=== PATIENT | female | born 1930 | race Caucasian/White ===

== ENCOUNTER 2018-09-08 21:33 | Observation (INO) ==
--- NOTE | 2018-09-08 22:21 | XRay Report ---
XR chest 1V portable CLINICAL HISTORY: Syncope. COMPARISON STUDY: No previous studies for comparison. FINDINGS: Scoliosis of the thoracolumbar spine is noted. There is moderate cardiomegaly without evide nce for pulmonary edema. There is no consolidation to suggest pneumonia. Lower mediastinal contour ab normality may reflect a hiatal hernia. IMPRESSION: 1. No acute cardiopulmonary findings. 2. Moderate cardiomegaly. 3. Suspected hiatal hernia. Electronically signed by: Jay Jay Jose M.D. 09/08/2018 10:19 PM
--- NOTE | 2018-09-08 22:28 | CT Scan Report ---
CT OF THE HEAD WITHOUT CONTRAST CLINICAL HISTORY: Syncope. COMPARISON STUDY: No previous studies for comparison. TECHNIQUE: Helical axial images of the head were obtained without IV contrast. Automated exposure con trol was utilized for the study. A dose lowering technique was utilized adhering to the principles o f ALARA. FINDINGS: Exam is mildly compromised given difficulty with positioning. However, no acute intracrania l hemorrhage, midline shift or mass effect is present. Ventricular system is normal for age. Basilar cisterns are patent. There are no extra-axial collections. Bilateral basal ganglia calcification is n oted. There is a posterior scalp contusion and laceration without calvarial fracture. The CT of the c ervical spine will be reported separately. IMPRESSION: 1. No acute intracranial findings. 2. Posterior scalp contusion and laceration. No calvarial fracture. Electronically signed by: Jay Jay Jose M.D. 09/08/2018 10:27 PM
[2018-09-08] MEDS ORDERED: LIDOCAINE HCL 1% 20 ML VIAL ONE (22:34)
--- NOTE | 2018-09-08 22:34 | CT Scan Report ---
CT OF THE CERVICAL SPINE WITHOUT CONTRAST CLINICAL HISTORY: Syncope. COMPARISON STUDY: No previous studies for comparison. TECHNIQUE: Helical axial images of the cervical spine were obtained without IV contrast. Sagittal a nd coronal reconstructions were viewed. Automated exposure control was utilized for the study. A do se lowering technique was utilized adhering to the principles of ALARA. FINDINGS: Exam is mildly compromised given difficulty with positioning. However, craniocervical junct ion is intact. No acute fracture is identified. Severe multilevel facet arthrosis is present. There i s moderate multilevel degenerative disc disease. There is no prevertebral edema. There is no pneumoth orax within visualized portions of the lung apices. IMPRESSION: 1. No acute cervical spine fracture or subluxation. Exam mildly compromised given difficulty position ing. 2. Severe multilevel facet arthrosis. Moderate multilevel degenerative disc disease. Electronically signed by: Jay Jay Jose M.D. 09/08/2018 10:33 PM
--- NOTE | 2018-09-08 22:46 | Emergency Department Note ---
Entered by Sarah Mitchell acting as a scribe for Morris Banda DO History of Present Illness General Chief complaint: Fall Stated complaint: FALL, STRUCK HEAD Source: patient and RN notes reviewed Limitations: no limitations History of Present Illness Provider complaint: fall Onset (ago): hour(s) Location: head Associated symptoms: + denies other symptoms (stomach pain, back pain) and + syncope The patient is a 88 year old female who presents to the Emergency Room with complaints of falling just prior to arrival. Per nurse, the patient was saturated in blood upon arrival. The patient states that she was in her bedroom and states that she fell over her night stand. The patient states that she lost consciousness. The patient denies any stomach pain or back pain. The patient states that she has a history of arthritis. The patient denies being on blood thinner medication. The patient states that her Tetanus shot is up-to-date. Home Medications Home Medications Medication Instructions Recorded Confirmed Type Calcium 500 + D 2 tab PO DAILY 09/08/18 09/08/18 History acetaminophen [Tylenol Extra 500 mg PO Q6H PRN 09/08/18 09/08/18 History Strength] cholecalciferol (vitamin D3) 2,000 unit PO DAILY 09/08/18 09/08/18 History docusate sodium [Stool Softener] 100 mg PO DAILY PRN 09/08/18 09/08/18 History hydrocodone-acetaminophen 1 tab PO Q4H PRN 09/08/18 09/08/18 History lorazepam 0.5 mg PO DAILY PRN 09/08/18 09/08/18 History metoprolol succinate 50 mg PO DAILY 09/08/18 09/08/18 History omega [id number] oil [[place]-3 2 cap PO DAILY 09/08/18 09/08/18 History Fish Oil] simvastatin 10 mg PO DAILY 09/08/18 09/08/18 History Allergies Allergy/AdvReac Type Severity Reaction Status Date / Time No Known Allergies Allergy Unverified 09/08/18 22:44 Past Med/Surg History Medical History Arthritis (Chronic) Surgical History No history of previous surgery (Inactive) Family History Other HTN (hypertension) Social History Current Living Situation: Personal Care Facility Other Information That Helps Us Care for You: No Feels Safe at Home: Yes Smoking Status: Never smoker Hx Alcohol Use: No Beliefs That Will Affect Care: None Communication Ability: Effective Review of Systems See HPI for pertinent positives & negatives. and A total of 10 systems reviewed and were otherwise negative Physical Exam Vital Signs Vital Signs - 24 hr 09/08/18 21:23 09/08/18 21:58 09/08/18 22:49 Temperature 36.5 C Temperature Source Oral Sepsis Recent Fever Within 48 Hours No Sepsis New/Unexplained Change in Mental Status No Sepsis Action Taken by Nursing No Action Required Pulse Rate - Lying Pulse Rate - Sitting Pulse Rate - Standing Pulse Rate 88 Pulse Rate [Apical] 63 Pulse Rhythm [Apical] Pulse Strength [Apical] Respiratory Rate 18 18 Respiratory Effort / Characteristics Non-Labored Non-Labored Respiratory Depth Normal Normal Respiratory Pattern Blood Pressure - Lying Blood Pressure - Sitting Blood Pressure- Standing Blood Pressure 167/98 H Blood Pressure [Left Arm] 184/107 H Blood Pressure [Right Arm] Blood Pressure Mean 121 Blood Pressure Mean [Left Arm] 132 Blood Pressure Mean [Right Arm] Blood Pressure Position [Left Arm] Blood Pressure Position [Right Arm] Pulse Oximetry 97 97 96 Oxygen Delivery Method Room Air Room Air Room Air 09/09/18 00:10 09/09/18 01:05 09/09/18 01:22 Temperature 36.7 C Temperature Source Oral Sepsis Recent Fever Within 48 Hours Sepsis New/Unexplained Change in Mental Status Sepsis Action Taken by Nursing Pulse Rate - Lying Pulse Rate - Sitting Pulse Rate - Standing Pulse Rate 62 Pulse Rate [Apical] 68 70 Pulse Rhythm [Apical] Regular Pulse Strength [Apical] Normal Respiratory Rate 18 16 16 Respiratory Effort / Characteristics Respiratory Depth Normal Normal Respiratory Pattern Blood Pressure - Lying Blood Pressure - Sitting Blood Pressure- Standing Blood Pressure 132/83 Blood Pressure [Left Arm] 165/93 H 158/81 H Blood Pressure [Right Arm] Blood Pressure Mean Blood Pressure Mean [Left Arm] 117 106 Blood Pressure Mean [Right Arm] Blood Pressure Position [Left Arm] Lying Blood Pressure Position [Right Arm] Pulse Oximetry 97 97 97 Oxygen Delivery Method Room Air Room Air Room Air 09/09/18 04:00 09/09/18 07:34 09/09/18 08:00 Temperature 36.6 C 36.5 C Temperature Source Oral Oral Sepsis Recent Fever Within 48 Hours Sepsis New/Unexplained Change in Mental Status Sepsis Action Taken by Nursing Pulse Rate - Lying Pulse Rate - Sitting Pulse Rate - Standing Pulse Rate 63 Pulse Rate [Apical] 59 L 62 Pulse Rhythm [Apical] Pulse Strength [Apical] Respiratory Rate 20 62 H Respiratory Effort / Characteristics Non-Labored Spontaneous Respiratory Depth Normal Normal Respiratory Pattern Regular Blood Pressure - Lying Blood Pressure - Sitting Blood Pressure- Standing Blood Pressure Blood Pressure [Left Arm] 131/83 156/90 H Blood Pressure [Right Arm] Blood Pressure Mean Blood Pressure Mean [Left Arm] 99 112 Blood Pressure Mean [Right Arm] Blood Pressure Position [Left Arm] Lying Lying Blood Pressure Position [Right Arm] Pulse Oximetry 96 97 Oxygen Delivery Method Room Air Room Air Room Air 09/09/18 11:37 09/09/18 11:38 09/09/18 14:59 Temperature 36.3 C L Temperature Source Oral Sepsis Recent Fever Within 48 Hours Sepsis New/Unexplained Change in Mental Status Sepsis Action Taken by Nursing Pulse Rate - Lying 51 L Pulse Rate - Sitting 84 Pulse Rate - Standing 76 Pulse Rate Pulse Rate [Apical] 51 L 62 Pulse Rhythm [Apical] Pulse Strength [Apical] Respiratory Rate 18 20 Respiratory Effort / Characteristics Respiratory Depth Respiratory Pattern Blood Pressure - Lying 119/72 Blood Pressure - Sitting 112/73 Blood Pressure- Standing 122/78 Blood Pressure Blood Pressure [Left Arm] Blood Pressure [Right Arm] 119/72 146/84 H Blood Pressure Mean Blood Pressure Mean [Left Arm] Blood Pressure Mean [Right Arm] 87 104 Blood Pressure Position [Left Arm] Blood Pressure Position [Right Arm] Lying Right Lateral Pulse Oximetry 95 97 Oxygen Delivery Method Room Air Room Air GENERAL: Patient is awake and alert. She is very anxious appearing and appears to be uncomfortable EYES: The conjunctivae are clear. The pupils are round and reactive. EARS, NOSE, MOUTH AND THROAT: The nose is without any evidence of any deformity. Mucous membranes are moist tongue is midline NECK: The neck is nontender and supple. RESPIRATORY: Normal respiratory effort is noted there is no evidence of wheezing rhonchi or rales CARDIOVASCULAR: Regular rate and rhythm noted there no murmurs rubs or gallops normal S1 normal S2 GASTROINTESTINAL: The abdomen is soft. Bowel sounds are present in all quadrants. Abdomen is nontender. BACK: Significant kyphoscoliosis was appreciated. No tenderness was noted. MUSCULOSKELETAL/EXTREMITIES: There is no evidence of gross deformity full range of motion is noted in the hips and shoulders SKIN: There is no obvious evidence of any rash. Trace pedal edema was noted bilaterally. There is a occipital scalp laceration noted. It is approximately 1.5 cm. No active bleeding was noted. NEUROLOGIC: Patient is awake alert and oriented x3 strength was symmetric but diminished bilaterally. There is no facial droop or drift appreciated. Procedures Laceration Laceration 1: Site: scalp Size (cm): 1.5 Description: linear Depth: simple, single layer Local Anesthetic: lidocaine 1% Amount of anesthesia used (mL): 4 Skin layer closed with: nylon Size (cm): 4-0 Number of sutures: 3 Technique: simple, interrupted Course 2154: Past medical records reviewed. The patient was evaluated in room B12, and a complete history and physical examination were performed. 2244: I checked on the patient and updated her on her results. 2333: I discussed the patient's case with Dr. Benjamin Chand Hospitalist who will evaluate the patient for further hospitalization. Consultations Consultation #1: Dr. Benjamin Omalley Time: 23:33 Administered Medications Acetaminophen (Tylenol) 650 mg PO Q4H PRN PRN Reason: Pain or Fever Stop: 10/09/18 01:51 Last Admin: 09/09/18 08:08 Dose: 650 mg Sodium Chloride (Nss 1000ml) 1,000 mls @ 50 mls/hr IV .Q20H STA Stop: 09/09/18 21:51 Last Admin: 09/09/18 03:02 Dose: 50 mls/hr Metoprolol Succinate (Toprol Xl) 50 mg PO HS HERMANN Stop: 10/09/18 00:04 Last Admin: 09/09/18 00:26 Dose: 50 mg Simvastatin (Zocor) 10 mg PO DAILY HERMANN Stop: 10/09/18 08:59 Last Admin: 09/09/18 08:07 Dose: 10 mg Discontinued Medications Acetaminophen (Tylenol) 500 mg PO NOW STA Stop: 09/08/18 22:52 Last Admin: 09/08/18 23:20 Dose: 500 mg Lidocaine HCl (Xylocaine 1% (Local)) Confirm Administered Dose 20 ml .ROUTE .STK -MED ONE Stop: 09/08/18 22:35 Last Admin: 09/08/18 22:36 Dose: 20 ml Medical Decision Making Differential Diagnosis Etiologies such as vasovagal event, infection, hypoglycemia, electrolyte abnormalities, cardiac sources, intracerebral event, toxicologic, neurologic, as well as others were entertained. Medical Records Attestation: I reviewed the patient's medical records. Home Medications Current Medication List: was personally reviewed by me Laboratory Data Attestation: I reviewed the patient's lab results. Result diagrams: 09/09/18 06:35 09/09/18 06:35 Lab Results 09/08/18 09/08/18 09/08/18 Range/Units 22:35 22:35 22:35 WBC 6.90 (4.8-10.8) K/uL RBC 4.49 (4.2-5.4) M/uL Hgb 14.4 (12.0-16.0) g/dL Hct 43.3 (37-47) % MCV 96.4 (80-100) fL MCH 32.1 (25-34) pg MCHC 33.3 (32-36) g/dL RDW Std Deviation 48.4 H (36.4-46.3) fL RDW Coeff of Jennifer 13.7 (11.5-14.5) % Plt Count 142 (130-400) K/uL MPV 10.3 (7.4-10.4) fL Immature Gran % (Auto) 0.3 % Neut % (Auto) 84.6 % Lymph % (Auto) 8.8 % Berks % (Auto) 5.8 % Eos % (Auto) 0.4 % Baso % (Auto) 0.1 % Immature Gran # (Auto) 0.02 (0.00-0.02) K/uL Neut # (Auto) 5.83 (1.4-6.5) K/uL Lymph # (Auto) 0.61 L (1.2-3.4) K/uL Berks # (Auto) 0.40 (0.11-0.59) K/uL Eos # (Auto) 0.03 (0-0.5) K/uL Baso # (Auto) 0.01 (0-0.2) K/uL PT 10.5 (9.0-12.0) Seconds INR 1.0 (0.9-1.1) APTT 24.7 (21.0-31.0) Seconds PTT Ratio 1.0 Sodium 139 (136-145) mmol/L Potassium 4.4 (3.5-5.1) mmol/L Chloride 107 (98-107) mmol/L Carbon Dioxide 23 (21-32) mmol/L Anion Gap 9.0 (3-11) BUN 31 H (7-18) mg/dl Creatinine 1.03 (0.6-1.2) mg/dl Est Cr Clr Drug Dosing 38.0 ml/min Est GFR ( Amer) 56.6 Est GFR (Non-Af Amer) 48.8 BUN/Creatinine Ratio 29.6 H (10-20) Glucose 110 H (70-99) mg/dl Calcium 9.1 (8.5-10.1) mg/dl Magnesium 2.4 (1.8-2.4) mg/dl Total Bilirubin 0.5 (0.1-1) mg/dl AST 13 L (15-37) U/L ALT 16 (12-78) U/L Alkaline Phosphatase 84 (45-117) U/L Total Creatine Kinase 166 (26-192) U/L CK-MB (CK-2) 4.6 H (0.5-3.6) ng/ml CK/CKMB % Calc 2.8 (0-3.0) Troponin I 0.199 H* (0-0.045) ng/ml Total Protein 7.6 (6.4-8.2) gm/dl Albumin 3.6 (3.4-5.0) gm/dl Globulin 4.0 (2.5-4.0) gm/dl Albumin/Globulin Ratio 0.9 (0.9-2) TSH 1.940 (0.300-4.500) uIu/ml Urine Color Urine Appearance (Clear) Urine pH (4.5-7.5) Ur Specific [place] (1.000-1.030) Urine Protein (Negative) Urine Glucose (UA) (Negative) Urine Ketones (Negative) Urine Blood (Negative) Urine Nitrite (Negative) Urine Bilirubin (Negative) Urine Urobilinogen (Negative) Ur Leukocyte Esterase (Negative) Urine WBC (Auto) (0-5) /hpf Urine RBC (Auto) (0-4) /hpf U Hyaline Cast (Auto) (0-5) /lpf U Epithel Cells (Auto) (0-5) /lpf Urine Bacteria (Auto) (Negative) Urine Opiates Screen (Neg) Ur Methadone, Qual (Neg) Urine Barbiturates (Neg) Ur Phencyclidine (PCP) (Neg) U Amphetamin/Meth Scrn (Neg) MDMA (Ecstasy) Screen (Neg) U Benzodiazepines Scrn (Neg) Ur Cocaine Metabolite (Neg) U Marijuana (THC) Screen (Neg) Blood Type Antibody Screen 09/08/18 09/08/18 09/09/18 Range/Units 23:35 23:35 06:35 WBC 4.77 L (4.8-10.8) K/uL RBC 4.10 L (4.2-5.4) M/uL Hgb 13.4 (12.0-16.0) g/dL Hct 39.4 (37-47) % MCV 96.1 (80-100) fL MCH 32.7 (25-34) pg MCHC 34.0 (32-36) g/dL RDW Std Deviation 47.8 H (36.4-46.3) fL RDW Coeff of Jennifer 13.7 (11.5-14.5) % Plt Count 138 (130-400) K/uL MPV 10.0 (7.4-10.4) fL Immature Gran % (Auto) 0.2 % Neut % (Auto) 66.4 % Lymph % (Auto) 22.6 % Berks % (Auto) 9.6 % Eos % (Auto) 1.0 % Baso % (Auto) 0.2 % Immature Gran # (Auto) 0.01 (0.00-0.02) K/uL Neut # (Auto) 3.16 (1.4-6.5) K/uL Lymph # (Auto) 1.08 L (1.2-3.4) K/uL Berks # (Auto) 0.46 (0.11-0.59) K/uL Eos # (Auto) 0.05 (0-0.5) K/uL Baso # (Auto) 0.01 (0-0.2) K/uL PT (9.0-12.0) Seconds INR (0.9-1.1) APTT (21.0-31.0) Seconds PTT Ratio Sodium (136-145) mmol/L Potassium (3.5-5.1) mmol/L Chloride (98-107) mmol/L Carbon Dioxide (21-32) mmol/L Anion Gap (3-11) BUN (7-18) mg/dl Creatinine (0.6-1.2) mg/dl Est Cr Clr Drug Dosing ml/min Est GFR ( Amer) Est GFR (Non-Af Amer) BUN/Creatinine Ratio (10-20) Glucose (70-99) mg/dl Calcium (8.5-10.1) mg/dl Magnesium (1.8-2.4) mg/dl Total Bilirubin (0.1-1) mg/dl AST (15-37) U/L ALT (12-78) U/L Alkaline Phosphatase (45-117) U/L Total Creatine Kinase (26-192) U/L CK-MB (CK-2) (0.5-3.6) ng/ml CK/CKMB % Calc (0-3.0) Troponin I (0-0.045) ng/ml Total Protein (6.4-8.2) gm/dl Albumin (3.4-5.0) gm/dl Globulin (2.5-4.0) gm/dl Albumin/Globulin Ratio (0.9-2) TSH (0.300-4.500) uIu/ml Urine Color Yellow Urine Appearance Clear (Clear) Urine pH 5.0 (4.5-7.5) Ur Specific [place] 1.023 (1.000-1.030) Urine Protein Negative (Negative) Urine Glucose (UA) Negative (Negative) Urine Ketones Negative (Negative) Urine Blood 2+ H (Negative) Urine Nitrite Negative (Negative) Urine Bilirubin Negative (Negative) Urine Urobilinogen Negative (Negative) Ur Leukocyte Esterase Negative (Negative) Urine WBC (Auto) 1-5 (0-5) /hpf Urine RBC (Auto) 0-4 (0-4) /hpf U Hyaline Cast (Auto) 1-5 (0-5) /lpf U Epithel Cells (Auto) 5-10 H (0-5) /lpf Urine Bacteria (Auto) Negative (Negative) Urine Opiates Screen Neg (Neg) Ur Methadone, Qual Neg (Neg) Urine Barbiturates Neg (Neg) Ur Phencyclidine (PCP) Neg (Neg) U Amphetamin/Meth Scrn Neg (Neg) MDMA (Ecstasy) Screen Neg (Neg) U Benzodiazepines Scrn Neg (Neg) Ur Cocaine Metabolite Neg (Neg) U Marijuana (THC) Screen Neg (Neg) Blood Type Antibody Screen 09/09/18 09/09/18 09/09/18 Range/Units 06:35 06:35 06:35 WBC (4.8-10.8) K/uL RBC (4.2-5.4) M/uL Hgb (12.0-16.0) g/dL Hct (37-47) % MCV (80-100) fL MCH (25-34) pg MCHC (32-36) g/dL RDW Std Deviation (36.4-46.3) fL RDW Coeff of Jennifer (11.5-14.5) % Plt Count (130-400) K/uL MPV (7.4-10.4) fL Immature Gran % (Auto) % Neut % (Auto) % Lymph % (Auto) % [place] % (Auto) % Eos % (Auto) % Baso % (Auto) % Immature Gran # (Auto) (0.00-0.02) K/uL Neut # (Auto) (1.4-6.5) K/uL Lymph # (Auto) (1.2-3.4) K/uL Berks # (Auto) (0.11-0.59) K/uL Eos # (Auto) (0-0.5) K/uL Baso # (Auto) (0-0.2) K/uL PT (9.0-12.0) Seconds INR (0.9-1.1) APTT Cancelled (21.0-31.0) Seconds PTT Ratio Cancelled Sodium 140 (136-145) mmol/L Potassium 3.9 (3.5-5.1) mmol/L Chloride 109 H (98-107) mmol/L Carbon Dioxide 25 (21-32) mmol/L Anion Gap 6.0 (3-11) BUN 23 H (7-18) mg/dl Creatinine 0.87 (0.6-1.2) mg/dl Est Cr Clr Drug Dosing 43.9 ml/min Est GFR ( Amer) 69.4 Est GFR (Non-Af Amer) 59.9 BUN/Creatinine Ratio 27.0 H (10-20) Glucose 101 H (70-99) mg/dl Calcium 8.7 (8.5-10.1) mg/dl Magnesium (1.8-2.4) mg/dl Total Bilirubin (0.1-1) mg/dl AST (15-37) U/L ALT (12-78) U/L Alkaline Phosphatase (45-117) U/L Total Creatine Kinase (26-192) U/L CK-MB (CK-2) (0.5-3.6) ng/ml CK/CKMB % Calc (0-3.0) Troponin I 0.523 H* (0-0.045) ng/ml Total Protein (6.4-8.2) gm/dl Albumin (3.4-5.0) gm/dl Globulin (2.5-4.0) gm/dl Albumin/Globulin Ratio (0.9-2) TSH (0.300-4.500) uIu/ml Urine Color Urine Appearance (Clear) Urine pH (4.5-7.5) Ur Specific [place] (1.000-1.030) Urine Protein (Negative) Urine Glucose (UA) (Negative) Urine Ketones (Negative) Urine Blood (Negative) Urine Nitrite (Negative) Urine Bilirubin (Negative) Urine Urobilinogen (Negative) Ur Leukocyte Esterase (Negative) Urine WBC (Auto) (0-5) /hpf Urine RBC (Auto) (0-4) /hpf U Hyaline Cast (Auto) (0-5) /lpf U Epithel Cells (Auto) (0-5) /lpf Urine Bacteria (Auto) (Negative) Urine Opiates Screen (Neg) Ur Methadone, Qual (Neg) Urine Barbiturates (Neg) Ur Phencyclidine (PCP) (Neg) U Amphetamin/Meth Scrn (Neg) MDMA (Ecstasy) Screen (Neg) U Benzodiazepines Scrn (Neg) Ur Cocaine Metabolite (Neg) U Marijuana (THC) Screen (Neg) Blood Type O Negative Antibody Screen NEGATIVE 09/09/18 Range/Units 07:20 WBC (4.8-10.8) K/uL RBC (4.2-5.4) M/uL Hgb (12.0-16.0) g/dL Hct (37-47) % MCV (80-100) fL MCH (25-34) pg MCHC (32-36) g/dL RDW Std Deviation (36.4-46.3) fL RDW Coeff of Jennifer (11.5-14.5) % Plt Count (130-400) K/uL MPV (7.4-10.4) fL Immature Gran % (Auto) % Neut % (Auto) % Lymph % (Auto) % [place] % (Auto) % Eos % (Auto) % Baso % (Auto) % Immature Gran # (Auto) (0.00-0.02) K/uL Neut # (Auto) (1.4-6.5) K/uL Lymph # (Auto) (1.2-3.4) K/uL [place] # (Auto) (0.11-0.59) K/uL Eos # (Auto) (0-0.5) K/uL Baso # (Auto) (0-0.2) K/uL PT (9.0-12.0) Seconds INR (0.9-1.1) APTT 25.6 (21.0-31.0) Seconds PTT Ratio 1.0 Sodium (136-145) mmol/L Potassium (3.5-5.1) mmol/L Chloride (98-107) mmol/L Carbon Dioxide (21-32) mmol/L Anion Gap (3-11) BUN (7-18) mg/dl Creatinine (0.6-1.2) mg/dl Est Cr Clr Drug Dosing ml/min Est GFR ( Amer) Est GFR (Non-Af Amer) BUN/Creatinine Ratio (10-20) Glucose (70-99) mg/dl Calcium (8.5-10.1) mg/dl Magnesium (1.8-2.4) mg/dl Total Bilirubin (0.1-1) mg/dl AST (15-37) U/L ALT (12-78) U/L Alkaline Phosphatase (45-117) U/L Total Creatine Kinase (26-192) U/L CK-MB (CK-2) (0.5-3.6) ng/ml CK/CKMB % Calc (0-3.0) Troponin I (0-0.045) ng/ml Total Protein (6.4-8.2) gm/dl Albumin (3.4-5.0) gm/dl Globulin (2.5-4.0) gm/dl Albumin/Globulin Ratio (0.9-2) TSH (0.300-4.500) uIu/ml Urine Color Urine Appearance (Clear) Urine pH (4.5-7.5) Ur Specific [place] (1.000-1.030) Urine Protein (Negative) Urine Glucose (UA) (Negative) Urine Ketones (Negative) Urine Blood (Negative) Urine Nitrite (Negative) Urine Bilirubin (Negative) Urine Urobilinogen (Negative) Ur Leukocyte Esterase (Negative) Urine WBC (Auto) (0-5) /hpf Urine RBC (Auto) (0-4) /hpf U Hyaline Cast (Auto) (0-5) /lpf U Epithel Cells (Auto) (0-5) /lpf Urine Bacteria (Auto) (Negative) Urine Opiates Screen (Neg) Ur Methadone, Qual (Neg) Urine Barbiturates (Neg) Ur Phencyclidine (PCP) (Neg) U Amphetamin/Meth Scrn (Neg) MDMA (Ecstasy) Screen (Neg) U Benzodiazepines Scrn (Neg) Ur Cocaine Metabolite (Neg) U Marijuana (THC) Screen (Neg) Blood Type Antibody Screen Imaging Data Radiologist's Impression: Radiology results as stated below per my review and the radiologist's interpretation: CT OF THE HEAD WITHOUT CONTRAST CLINICAL HISTORY: Syncope. COMPARISON STUDY: No previous studies for comparison. TECHNIQUE: Helical axial images of the head were obtained without IV contrast. Automated exposure control was utilized for the study. A dose lowering technique was utilized adhering to the principles of ALARA. FINDINGS: Exam is mildly compromised given difficulty with positioning. However , no acute intracranial hemorrhage, midline shift or mass effect is present. Ventricular system is normal for age. Basilar cisterns are patent. There are no extra-axial collections. Bilateral basal ganglia calcification is noted. There is a posterior scalp contusion and laceration without calvarial fracture. The CT of the cervical spine will be reported separately. IMPRESSION: 1. No acute intracranial findings. 2. Posterior scalp contusion and laceration. No calvarial fracture. Electronically signed by: Jay Jay Jose M.D. 09/08/2018 10:27 PM XR chest 1V portable CLINICAL HISTORY: Syncope. COMPARISON STUDY: No previous studies for comparison. FINDINGS: Scoliosis of the thoracolumbar spine is noted. There is moderate cardiomegaly without evidence for pulmonary edema. There is no consolidation to suggest pneumonia. Lower mediastinal contour abnormality may reflect a hiatal hernia. IMPRESSION: 1. No acute cardiopulmonary findings. 2. Moderate cardiomegaly. 3. Suspected hiatal hernia. Electronically signed by: Jay Jay Jose M.D. 09/08/2018 10:[address] OF THE CERVICAL SPINE WITHOUT CONTRAST CLINICAL HISTORY: Syncope. COMPARISON STUDY: No previous studies for comparison. TECHNIQUE: Helical axial images of the cervical spine were obtained without IV contrast. Sagittal and coronal reconstructions were viewed. Automated exposure control was utilized for the study. A dose lowering technique was utilized adhering to the principles of ALARA. FINDINGS: Exam is mildly compromised given difficulty with positioning. However , craniocervical junction is intact. No acute fracture is identified. Severe multilevel facet arthrosis is present. There is moderate multilevel degenerative disc disease. There is no prevertebral edema. There is no pneumothorax within visualized portions of the lung apices. IMPRESSION: 1. No acute cervical spine fracture or subluxation. Exam mildly compromised given difficulty positioning. 2. Severe multilevel facet arthrosis. Moderate multilevel degenerative disc disease. Electronically signed by: Jay Jay Jose M.D. 09/08/2018 10:33 PM ECG Data Indication: syncope Rate (beats per minute): 62 Rhythm: sinus rhythm Findings: + RBBB Comparison ECG Date: no prior available Blood Pressure Blood Pressure Findings: Elevated blood pressure Blood Pressure Disposition: further management by hospitalist PAVAN Narrative The patient is an 88-year-old female who presented to the emergency department duration after a fall. It is unclear if the patient had a syncopal episode or if she tripped but she sustained a significant laceration to her scalp. She had significant blood loss prior to arrival. This area was cleaned in the usual fashion and sutures were applied. I discussed the patient's laboratory and radiographic studies with her. She was treated with Tylenol in the emergency department. Her EKG shows a right bundle branch block pattern but no previous could be found. The patient's troponin was mildly elevated. Given these findings I was concerned that this could represent a cardiac source for the patient's syncope. This reason I discussed her case with the on-call [facility] hospitalist. They have agreed to evaluate the patient in the emergency department for further management and disposition. Impression & Plan Syncope, Head injury, Laceration of scalp, Abnormal ECG Discharge Plan Visit Data *Final* Discharge Date/Time: 09/09/18 01:05 Chief Complaint: Fall Stated Complaint: FALL, STRUCK HEAD ED Provider: Morris Banda Discharge Problem: Syncope, Head injury, Laceration of scalp, Abnormal ECG Patient Disposition: Admitted As Inpatient Discharge Instructions Interventions: ED Discharge Assessment Last Done: 09/09/18 01:05 The scribe's documentation has been prepared under my direction and personally reviewed by me in its entirety. I confirm that the note above accurately reflects all work, treatment, procedures, and medical decision making performed by me.
[2018-09-08 22:49] LABS: Basophils # (auto) 0.01 K/uL (0-0.2); Basophils % (auto) 0.1 %; Eosinophils # (auto) 0.03 K/uL (0-0.5); Eosinophils % (auto) 0.4 %; Hematocrit (blood only) 43.3 % (37-47); Hemoglobin 14.4 g/dL (12.0-16.0); Immature Granulocytes # (auto) 0.02 K/uL (0.00-0.02); Immature Granulocytes % (auto) 0.3 %; Lymphocytes # (auto) 0.61 K/uL (1.2-3.4); Lymphocytes % (auto) 8.8 %; Mean Corpuscular Hgb Conc 33.3 g/dL (32-36); Mean Corpuscular Volume 96.4 fL (80-100); Mean Platelet Volume 10.3 fL (7.4-10.4); Monocytes % (auto) 5.8 %; Neutrophils # (auto) 5.83 K/uL (1.4-6.5); Neutrophils % (auto) 84.6 %; Platelet Count 142 K/uL (130-400); RDW Coefficient of Variation 13.7 % (11.5-14.5); RDW Standard Deviation 48.4 fL (36.4-46.3); Red Blood Count 4.49 M/uL (4.2-5.4)
[2018-09-08] MEDS ORDERED: ACETAMINOPHEN 500 MG TAB PO STA (22:51)
[2018-09-08 22:57] LABS: Partial Thromboplastin Time 24.7 Seconds (21.0-31.0); Prothrombin Time 10.5 Seconds (9.0-12.0)
[2018-09-08 23:06] LABS: Albumin Level 3.6 gm/dl (3.4-5.0); BUN Creatinine Ratio 29.6 (10-20); Calcium 9.1 mg/dl (8.5-10.1); Est GFR (African American) 56.6; Est GFR (Non-African American) 48.8; Magnesium 2.4 mg/dl (1.8-2.4); Potassium 4.4 mmol/L (3.5-5.1)
[2018-09-08 23:18] LABS: Albumin Globulin Ratio 0.9 (0.9-2); Bilirubin,Total 0.5 mg/dl (0.1-1); Creatine Kinase MB 4.6 ng/ml (0.5-3.6); Total Protein 7.6 gm/dl (6.4-8.2); Troponin I 0.199 ng/ml (0-0.045)
[2018-09-08 23:48] LABS: Appearance Urine Clear (Clear); Bacteria Urine Automated Negative (Negative); Bilirubin Urine Negative (Negative); Color Urine Yellow; Glucose Urine UA Negative (Negative); Ketones Urine Negative (Negative); Leukocyte Esterase Urine Negative (Negative); Nitrite Urine Negative (Negative); Protein Urine Negative (Negative); Specific Gravity Urine 1.023 (1.000-1.030); Urobilinogen Urine Negative (Negative)
--- NOTE | 2018-09-09 00:13 | History & Physical Report ---
Date of Service September 09, 2018 Assessment & Plan (1) Concussion: Hypertensive urgency secondary to missed nighttime medication and pain Troponin bump secondary to above OBS Medical telemetry Neurochecks Neurology consult RE concussion Facilitate missed nighttime beta-bhavani, may need to titrate medication follow cardiac markers, TTE RE abnormal troponin DVT prophylaxis. SCDs RE bleeding scalp wound Full code History of Present Illness Chief Complaint: Fall, head trauma Primary Care Provider: Shirley Lovett DO History obtained from patient, family, and records. Medical history significant for hypertension, hyperlipidemia, arthritis, anxiety. Yesterday afternoon patient had an unwitnessed fall over the bed stand. Patient thinks her chronically arthritic left hip gave out causing her to fall and hit her head with subsequent LOC, unknown duration. Patient denies chest pain, S OB. Patient woke up with a bleeding head wound. She crawled to the phone outside her room and was able to contact 911. Patient brought to the ER by EMS. Medical History as above Surgical History : Carpal tunnel surgery, cataract surgery Allergies Allergy/AdvReac Type Severity Reaction Status Date / Time No Known Allergies Allergy Unverified 09/08/18 22:44 Home Medications Home Medications Medication Instructions Recorded Confirmed Type Calcium 500 + D 2 tab PO DAILY 09/08/18 09/08/18 History acetaminophen [Tylenol Extra 500 mg PO Q6H PRN 09/08/18 09/08/18 History Strength] cholecalciferol (vitamin D3) 2,000 unit PO DAILY 09/08/18 09/08/18 History docusate sodium [Stool Softener] 100 mg PO DAILY PRN 09/08/18 09/08/18 History hydrocodone-acetaminophen 1 tab PO Q4H PRN 09/08/18 09/08/18 History lorazepam 0.5 mg PO DAILY PRN 09/08/18 09/08/18 History metoprolol succinate 50 mg PO DAILY 09/08/18 09/08/18 History omega 4-mfn-gso-fish oil [[place]-3 2 cap PO DAILY 09/08/18 09/08/18 History Fish Oil] simvastatin 10 mg PO DAILY 09/08/18 09/08/18 History Past Med/Surg History Medical History Arthritis (Chronic) Surgical History No history of previous surgery (Inactive) Family History Other HTN (hypertension) Social History Current Living Situation: Personal Care Facility Other Information That Helps Us Care for You: No Feels Safe at Home: Yes Smoking Status: Never smoker Hx Alcohol Use: No Beliefs That Will Affect Care: None Communication Ability: Effective Review of Systems As per HPI, all 10 systems reviewed, all other ROS negative Physical Exam 2 Vital Signs (Past 24 Hours): Last Vital Signs Temp 36.5 C 09/08/18 21:23 Pulse 63 09/08/18 22:49 Resp 18 09/08/18 22:49 BP 184/107 H 09/08/18 22:49 Pulse Ox 96 09/08/18 22:49 Physical Exam: GENERAL: Pleasant, obese, slightly anxious, no respiratory distress SKIN: Normal color, warm HEENT: Dressing, posterior scalp, pink palpebral conjunctivae, no ptosis, dry buccal mucosa NECK : Supple, short, no tenderness CHEST : CTA, no tenderness HEART : RRR, systolic murmur ABDOMEN: Some distention, nontender EXTREMITIES : minimal LE swelling/tenderness, no other conspicuous deformities noted NEUROLOGIC : Coherent, no facial asymmetry, no other gross focality Results & Data Laboratory Results Laboratory Results WBC 6.90 K/uL (4.8-10.8) 09/08/18 22:35 RBC 4.49 M/uL (4.2-5.4) 09/08/18 22:35 Hgb 14.4 g/dL (12.0-16.0) 09/08/18 22:35 Hct 43.3 % (37-47) 09/08/18 22:35 MCV 96.4 fL (80-100) 09/08/18 22:35 MCH 32.1 pg (25-34) 09/08/18 22:35 MCHC 33.3 g/dL (32-36) 09/08/18 22:35 RDW Std Deviation 48.4 fL (36.4-46.3) H 09/08/18 22:35 RDW Coeff of Jennifer 13.7 % (11.5-14.5) 09/08/18 22:35 Plt Count 142 K/uL (130-400) 09/08/18 22:35 MPV 10.3 fL (7.4-10.4) 09/08/18 22:35 Immature Gran % (Auto) 0.3 % 09/08/18 22:35 Neut % (Auto) 84.6 % 09/08/18 22:35 Lymph % (Auto) 8.8 % 09/08/18 22:35 [place] % (Auto) 5.8 % 09/08/18 22:35 Eos % (Auto) 0.4 % 09/08/18 22:35 Baso % (Auto) 0.1 % 09/08/18 22:35 Immature Gran # (Auto) 0.02 K/uL (0.00-0.02) 09/08/18 22:35 Neut # (Auto) 5.83 K/uL (1.4-6.5) 09/08/18 22:35 Lymph # (Auto) 0.61 K/uL (1.2-3.4) L 09/08/18 22:35 [place] # (Auto) 0.40 K/uL (0.11-0.59) 09/08/18 22:35 Eos # (Auto) 0.03 K/uL (0-0.5) 09/08/18 22:35 Baso # (Auto) 0.01 K/uL (0-0.2) 09/08/18 22:35 PT 10.5 Seconds (9.0-12.0) 09/08/18 22:35 INR 1.0 (0.9-1.1) 09/08/18 22:35 APTT 24.7 Seconds (21.0-31.0) 09/08/18 22:35 PTT Ratio 1.0 09/08/18 22:35 Sodium 139 mmol/L (136-145) 09/08/18 22:35 Potassium 4.4 mmol/L (3.5-5.1) 09/08/18 22:35 Chloride 107 mmol/L (98-107) 09/08/18 22:35 Carbon Dioxide 23 mmol/L (21-32) 09/08/18 22:35 Anion Gap 9.0 (3-11) 09/08/18 22:35 BUN 31 mg/dl (7-18) H 09/08/18 22:35 Creatinine 1.03 mg/dl (0.6-1.2) 09/08/18 22:35 Est Cr Clr Drug Dosing 38.0 ml/min 09/08/18 22:35 Est GFR ( Amer) 56.6 09/08/18 22:35 Est GFR (Non-Af Amer) 48.8 09/08/18 22:35 BUN/Creatinine Ratio 29.6 (10-20) H 09/08/18 22:35 Glucose 110 mg/dl (70-99) H 09/08/18 22:35 Calcium 9.1 mg/dl (8.5-10.1) 09/08/18 22:35 Magnesium 2.4 mg/dl (1.8-2.4) 09/08/18 22:35 Total Bilirubin 0.5 mg/dl (0.1-1) 09/08/18 22:35 AST 13 U/L (15-37) L 09/08/18 22:35 ALT 16 U/L (12-78) 09/08/18 22:35 Alkaline Phosphatase 84 U/L (45-117) 09/08/18 22:35 Total Creatine Kinase 166 U/L (26-192) 09/08/18 22:35 CK-MB (CK-2) 4.6 ng/ml (0.5-3.6) H 09/08/18 22:35 CK/CKMB % Calc 2.8 (0-3.0) 09/08/18 22:35 Troponin I 0.199 ng/ml (0-0.045) H* 09/08/18 22:35 Total Protein 7.6 gm/dl (6.4-8.2) 09/08/18 22:35 Albumin 3.6 gm/dl (3.4-5.0) 09/08/18 22:35 Globulin 4.0 gm/dl (2.5-4.0) 09/08/18 22:35 Albumin/Globulin Ratio 0.9 (0.9-2) 09/08/18 22:35 TSH 1.940 uIu/ml (0.300-4.500) 09/08/18 22:35 Urine Color Yellow 09/08/18 23:35 Urine Appearance Clear (Clear) 09/08/18 23:35 Urine pH 5.0 (4.5-7.5) 09/08/18 23:35 Ur Specific [place] 1.023 (1.000-1.030) 09/08/18 23:35 Urine Protein Negative (Negative) 09/08/18 23:35 Urine Glucose (UA) Negative (Negative) 09/08/18 23:35 Urine Ketones Negative (Negative) 09/08/18 23:35 Urine Blood 2+ (Negative) H 09/08/18 23:35 Urine Nitrite Negative (Negative) 09/08/18 23:35 Urine Bilirubin Negative (Negative) 09/08/18 23:35 Urine Urobilinogen Negative (Negative) 09/08/18 23:35 Ur Leukocyte Esterase Negative (Negative) 09/08/18 23:35 Urine WBC (Auto) 1-5 /hpf (0-5) 09/08/18 23:35 Urine RBC (Auto) 0-4 /hpf (0-4) 09/08/18 23:35 U Hyaline Cast (Auto) 1-5 /lpf (0-5) 09/08/18 23:35 U Epithel Cells (Auto) 5-10 /lpf (0-5) H 09/08/18 23:35 Urine Bacteria (Auto) Negative (Negative) 09/08/18 23:[address] head posterior scalp contusion CT cervical spine No cervical dislocation/fracture; arthritis Chest x-ray cardiomegaly, hiatal hernia EKG as per my interpretation rate 65, NSR, right bundle branch block
[2018-09-09] MEDS: METOPROLOL SUCC 50MG EXT REL TAB PO SCH ×2 (00:26→20:37)
[2018-09-09 00:36] LABS: Amphetamines+Metham, Urine Neg (Neg); Barbiturates, Urine Neg (Neg); Benzodiazepine, Urine Neg (Neg); Cocaine, Urine Neg (Neg); MDMA (Ecstacy), Urine Neg (Neg); Methadone, Urine Neg (Neg); Opiate, Urine Neg (Neg); Phencyclidine, Urine Neg (Neg)
[2018-09-09] MEDS ORDERED: LORazepam 0.5 MG TAB PO PRN (01:52)
[2018-09-09] MEDS ORDERED: NITROGLYCERIN SL 0.4 MG/TAB TAB SL PRN (01:52)
[2018-09-09] MEDS ORDERED: OXYCODONE HCL IR 5 MG TAB (IMMEDIATE RELEASE) PO PRN (01:52)
[2018-09-09] MEDS ORDERED: PROCHLORPERAZINE 5 MG in SYRINGE 4 ML IV PRN (01:52)
[2018-09-09] MEDS ORDERED: DOCUSATE SODIUM 100 MG CAP PO PRN (01:52)
[2018-09-09] MEDS ORDERED: SODIUM CHLORIDE 0.9% 1000ML 1,000 ML IV STA (01:52)
[2018-09-09 06:57] LABS: Basophils # (auto) 0.01 K/uL (0-0.2); Basophils % (auto) 0.2 %; Eosinophils # (auto) 0.05 K/uL (0-0.5); Hematocrit (blood only) 39.4 % (37-47); Hemoglobin 13.4 g/dL (12.0-16.0); Immature Granulocytes # (auto) 0.01 K/uL (0.00-0.02); Immature Granulocytes % (auto) 0.2 %; Lymphocytes # (auto) 1.08 K/uL (1.2-3.4); Lymphocytes % (auto) 22.6 %; Mean Corpuscular Volume 96.1 fL (80-100); Monocytes # (auto) 0.46 K/uL (0.11-0.59); Monocytes % (auto) 9.6 %; Neutrophils # (auto) 3.16 K/uL (1.4-6.5); Neutrophils % (auto) 66.4 %; Platelet Count 138 K/uL (130-400); RDW Coefficient of Variation 13.7 % (11.5-14.5); RDW Standard Deviation 47.8 fL (36.4-46.3); White Blood Count 4.77 K/uL (4.8-10.8)
[2018-09-09 07:20] LABS: Calcium 8.7 mg/dl (8.5-10.1); Creatinine Clr Calc Pharmacy 43.9 ml/min; Est GFR (African American) 69.4; Est GFR (Non-African American) 59.9; Potassium 3.9 mmol/L (3.5-5.1)
[2018-09-09 07:28] LABS: Troponin I 0.523 ng/ml (0-0.045)
[2018-09-09 07:53] LABS: Partial Thromboplastin Time 25.6 Seconds (21.0-31.0)
[2018-09-09] MEDS: SIMVASTATIN 10 MG TAB PO SCH (08:07)
[2018-09-09] MEDS: ACETAMINOPHEN 325 MG TAB PO PRN ×3 (08:08→23:40)
--- NOTE | 2018-09-09 10:38 | Neurology Consultation ---
Date of Consultation September 09, 2018 A/P: Mild TBI /Concussion Mechanical Fall A 88 year old woman admitted with mild TBI s/p a mechanical fall. CT brain negative for contusion or SDH. Neurology consulted for concussion. - I believe this patient did sustain a concussion. Has some amnesia associated with the event. Patient is currently doing well now. Speech is normal. Comprehension intact. Following commands. - No further work up necessary from a neurology standpoint. -PT/OT for rehab needs Patient can follow up with PCP after discharge. Please call me with any further questions or concerns. HPI: An 88 year old woman with history of HTN and arthritis admitted for TBI after a mechanical fall. Patient hit her head and LOC. When she woke she called 911. Found to have scalp laceration requiring closure. Neurology consulted for concussion. No family at bedside. Patient provides the history. Reports falling and possibly hitting her head on a anais. Denies warning symptoms. She recalls the events afterwards. sounds as if she did lose concioussness. No incontinence of tongue biting. She was able to call 911. Reports feeling ok now. States she has history of falls in the past. D History of Present Illness Attending Physician: Thaddeus Guerrero MD Allergies Allergy/AdvReac Type Severity Reaction Status Date / Time No Known Allergies Allergy Unverified 09/08/18 22:44 Home Medications Home Medications Medication Instructions Recorded Confirmed Type Calcium 500 + D 2 tab PO DAILY 09/08/18 09/08/18 History acetaminophen [Tylenol Extra 500 mg PO Q6H PRN 09/08/18 09/08/18 History Strength] cholecalciferol (vitamin D3) 2,000 unit PO DAILY 09/08/18 09/08/18 History docusate sodium [Stool Softener] 100 mg PO DAILY PRN 09/08/18 09/08/18 History hydrocodone-acetaminophen 1 tab PO Q4H PRN 09/08/18 09/08/18 History lorazepam 0.5 mg PO DAILY PRN 09/08/18 09/08/18 History metoprolol succinate 50 mg PO DAILY 09/08/18 09/08/18 History omega 1-zlp-sbg-fish oil [[place]-3 2 cap PO DAILY 09/08/18 09/08/18 History Fish Oil] simvastatin 10 mg PO DAILY 09/08/18 09/08/18 History Patient History Medical History Arthritis (Chronic) Surgical History No history of previous surgery (Inactive) Family History Other HTN (hypertension) Social History Current Living Situation: Personal Care Facility Other Information That Helps Us Care for You: No Feels Safe at Home: Yes Smoking Status: Never smoker Hx Alcohol Use: No Beliefs That Will Affect Care: None Communication Ability: Effective Physical Exam 2 Vital Signs (Past 24 Hours): Last Vital Signs Temp 36.5 C 09/09/18 07:34 Pulse 62 09/09/18 07:34 Resp 62 H 09/09/18 07:34 BP 156/90 H 09/09/18 07:34 Pulse Ox 97 09/09/18 07:34 Physical Exam: EXAM: Constitutional: appearance normally developed, well nourished Head and Face: laceration on posterior head Eyes: normal lids, normal conjunctiva Neck: supple Respiratory: normal effort Cardiovascular: regular rhythm and normal pulses Abdomen: non distended Psychiatric:normal mood and normal affect NEUROLOGIC EXAMINATION: Appearance: no acute distress Orientation: awake, alert and oriented x 3 Mental Status: alert Attention: normal Knowledge: appropriate Language: no aphasia Speech: no dysarthria Cranial Nerves: CN 2 - no visual defect on confrontation and pupils round, equal CN 3, 4, 6 - extra-ocular movements intact CN 5 - facial sensation intact CN 7 - no facial asymmetry CN 8 - intact hearing CN 9, 10 - palate symmetric CN 11 - good shoulder shrug CN 12 - tongue midline Gait: deferred Coordination: no ataxia with finger to nose testing Sensory: intact to light touch Muscle Tone: normal Muscle exam: No drift in upper extremities Reflexes: No clonus, berman negative
--- NOTE | 2018-09-09 16:11 | Hospitalist Progress Note ---
Date of Service September 09, 2018 Assessment & Plan (1) Concussion: Probable head injury following fall Minimal skull laceration CT scan has been negative Clinically a lot better Appreciate neurology input and recommendation DVT prophylaxis. SCDs RE bleeding scalp wound Full code (2) HTN (hypertension): Noted to have very high blood pressure in the emergency room Likely be the contributing factor for fall Continue current blood pressure medications Monitor BP (3) Head injury: As above with scalp injury Concussion Awaiting evaluation and recommendation PT and OT evaluation before discharge Subjective 88-year-old female with significant past medical history of hypertension was admitted with mechanical fall with probable concussion. 09/09: Patient was seen and examined in telemetry unit Denies any symptoms and wants to go home Has had neuro evaluation and awaiting for PT and OT If cleared from physical therapy she may be discharged this afternoon/ Physical Exam 2 Vital Signs (Past 24 Hours): Last Vital Signs Temp 36.3 C L 09/09/18 11:37 Pulse 62 09/09/18 14:59 Resp 20 09/09/18 14:59 BP 146/84 H 09/09/18 14:59 Pulse Ox 97 09/09/18 14:59 Physical Exam: No apparent distress at rest Constitutional: WD/WN, vitals as above Respiratory: Auscultation: lungs clear to auscultation bilaterally and + diminished lung sounds Cardiovascular: Rate/Rhythm: regular rate and regular rhythm Heart Sounds: normal S1 and normal S2 Gastrointestinal (Abdomen): normal bowel sounds, soft, nontender, no hepatosplenomegaly Neurologic: Alert, awake and oriented x3. Generally weak but no focal neuro deficit Results & Data Laboratory Results Short CBC 09/08/18 09/09/18 Range/Units 22:35 06:35 WBC 6.90 4.77 L (4.8-10.8) K/uL Hgb 14.4 13.4 (12.0-16.0) g/dL Hct 43.3 39.4 (37-47) % Plt Count 142 138 (130-400) K/uL BMP 09/08/18 09/09/18 22:35 06:35 Sodium 139 140 Potassium 4.4 3.9 Chloride 107 109 H Carbon Dioxide 23 25 BUN 31 H 23 H Creatinine 1.03 0.87 Glucose 110 H 101 H Calcium 9.1 8.7 Cardiac Enzymes 09/08/18 09/09/18 Range/Units 22:35 06:35 Total Creatine Kinase 166 (26-192) U/L CK-MB (CK-2) 4.6 H (0.5-3.6) ng/ml Troponin I 0.199 H* 0.523 H* (0-0.045) ng/ml Liver Function 09/08/18 Range/Units 22:35 Total Bilirubin 0.5 (0.1-1) mg/dl AST 13 L (15-37) U/L ALT 16 (12-78) U/L Alkaline Phosphatase 84 (45-117) U/L Albumin 3.6 (3.4-5.0) gm/dl Urine 09/08/18 Range/Units 23:35 Urine Color Yellow Urine Appearance Clear (Clear) Urine pH 5.0 (4.5-7.5) Ur Specific [place] 1.023 (1.000-1.030) Urine Protein Negative (Negative) Urine Glucose (UA) Negative (Negative) Medications Administered Current Inpatient Medications Acetaminophen (Tylenol) 650 mg PO Q4H PRN PRN Reason: Pain or Fever Stop: 10/09/18 01:51 Last Admin: 09/09/18 08:08 Dose: 650 mg Docusate Sodium (Colace) 100 mg PO DAILY PRN PRN Reason: Constipation Stop: 10/09/18 01:51 Sodium Chloride (Nss 1000ml) 1,000 mls @ 50 mls/hr IV .Q20H STA Stop: 09/09/18 21:51 Last Admin: 09/09/18 03:02 Dose: 50 mls/hr Prochlorperazine 5 mg/ Syringe 5 mls @ 5 mls/min IV Q6H PRN PRN Reason: Nausea And Vomiting Stop: 10/09/18 01:51 Lorazepam (Ativan) 0.5 mg PO DAILY PRN PRN Reason: Anxiety Stop: 10/09/18 01:51 Metoprolol Succinate (Toprol Xl) 50 mg PO HS [facility] Stop: 10/09/18 00:04 Last Admin: 09/09/18 00:26 Dose: 50 mg Metoprolol Succinate (Toprol Xl) 50 mg PO [facility] Stop: 10/09/18 20:59 Nitroglycerin (Nitrostat) 0.4 mg SL UD PRN PRN Reason: Chest Pain Stop: 10/09/18 01:51 Oxycodone HCl (Roxicodone Immediate Rel) 5 mg PO Q4H PRN PRN Reason: Pain Stop: 09/23/18 01:51 Simvastatin (Zocor) 10 mg PO DAILY [facility] Stop: 10/09/18 08:59 Last Admin: 09/09/18 08:07 Dose: 10 mg _ (1) Head injury Encounter type: initial encounter Qualified Code(s): S09.90XA - Unspecified injury of head, initial encounter
[2018-09-09] MEDS: CHOLECALCIFEROL 1,000 UNITS TAB PO SCH ×2 (18:36→19:04)
[2018-09-09] MEDS: CALCIUM 600MG + VIT D 400 IU TAB PO SCH ×2 (18:37→19:04)
[2018-09-09] MEDS: OMEGA-3 (PURIFIED FISH OIL) 1 GM CAP PO SCH ×2 (18:37→19:04)
[2018-09-09] MEDS ORDERED: METOPROLOL SUCC 50MG EXT REL TAB PO SCH (21:00)
[2018-09-10 05:39] LABS: Estimated Average Glucose 108 mg/dl
[2018-09-10] MEDS: OMEGA-3 (PURIFIED FISH OIL) 1 GM CAP PO SCH (08:20)
[2018-09-10] MEDS: SIMVASTATIN 10 MG TAB PO SCH (08:20)
[2018-09-10] MEDS: CHOLECALCIFEROL 1,000 UNITS TAB PO SCH (08:20)
[2018-09-10] MEDS: CALCIUM 600MG + VIT D 400 IU TAB PO SCH (08:20)
--- NOTE | 2018-09-10 12:51 | Hospitalist Progress Note ---
Date of Service September 10, 2018 Assessment & Plan (1) Concussion: Probable head injury following fall Minimal skull laceration status post stitched CT scan has been negative Clinically a lot better 09/09 Appreciate neurology input and recommendation No further workup as per neurology Denies any symptoms and denies any headache She can be discharged home today DVT prophylaxis. SCDs RE bleeding scalp wound Full code (2) HTN (hypertension): Noted to have very high blood pressure in the emergency room Likely be the contributing factor for fall Continue current blood pressure medications Monitor BP-blood pressure is controlled (3) Head injury: As above with scalp injury Concussion Awaiting evaluation and recommendation PT and OT evaluation before discharge Scalp lacerated area looks better Speech can be removed as an outpatient Subjective 88-year-old female with significant past medical history of hypertension was admitted with mechanical fall with probable concussion. 09/09: Patient was seen and examined in telemetry unit Denies any symptoms and wants to go home Has had neuro evaluation and awaiting for PT and OT If cleared from physical therapy she may be discharged this afternoon/ 09/10 Patient was seen and examined the medical floor Denies any symptoms today No more dizziness or headache Got physical therapy and doing well Will be discharged home today Physical Exam 2 Vital Signs (Past 24 Hours): Last Vital Signs Temp 36.4 C L 09/10/18 08:00 Pulse 52 L 09/10/18 08:00 Resp 18 09/10/18 08:00 BP 145/88 H 09/10/18 08:00 Pulse Ox 94 09/10/18 08:00 Constitutional: WD/WN, vitals as above Respiratory: Auscultation: lungs clear to auscultation bilaterally and + diminished lung sounds Cardiovascular: Rate/Rhythm: regular rate and regular rhythm Heart Sounds: normal S1 and normal S2 Gastrointestinal (Abdomen): normal bowel sounds, soft, nontender, no hepatosplenomegaly Neurologic: PERRL, EOMI, accommodation nl, no face palsy, no dysarthria Results & Data Medications Administered Current Inpatient Medications Acetaminophen (Tylenol) 650 mg PO Q4H PRN PRN Reason: Pain or Fever Stop: 10/09/18 01:51 Last Admin: 09/09/18 23:40 Dose: 650 mg Docusate Sodium (Colace) 100 mg PO DAILY PRN PRN Reason: Constipation Stop: 10/09/18 01:51 Fish Oil ([place]-3 (Purified Fish Oil)) 2 gm PO DAILY ON LICENSE OF [facility] Stop: 10/09/18 17:59 Last Admin: 09/10/18 08:20 Dose: 2 gm Prochlorperazine 5 mg/ Syringe 5 mls @ 5 mls/min IV Q6H PRN PRN Reason: Nausea And Vomiting Stop: 10/09/18 01:51 Last Admin: 09/10/18 04:19 Dose: 5 mls/min Lorazepam (Ativan) 0.5 mg PO DAILY PRN PRN Reason: Anxiety Stop: 10/09/18 01:51 Metoprolol Succinate (Toprol Xl) 50 mg PO HS ON LICENSE OF [facility] Stop: 10/09/18 00:04 Last Admin: 09/09/18 20:37 Dose: 50 mg Multivitamins/Minerals (Caltrate Plus) 1 tab PO BIDM ON LICENSE OF [facility] Stop: 10/09/18 17:59 Last Admin: 09/10/18 08:20 Dose: 1 tab Nitroglycerin (Nitrostat) 0.4 mg SL UD PRN PRN Reason: Chest Pain Stop: 10/09/18 01:51 Oxycodone HCl (Roxicodone Immediate Rel) 5 mg PO Q4H PRN PRN Reason: Pain Stop: 09/23/18 01:51 Simvastatin (Zocor) 10 mg PO DAILY ON LICENSE OF [facility] Stop: 10/09/18 08:59 Last Admin: 09/10/18 08:20 Dose: 10 mg Vitamin D (Vitamin D3) 2,000 units PO DAILY ON LICENSE OF [facility] Stop: 10/09/18 17:59 Last Admin: 09/10/18 08:20 Dose: 2,000 units _ (1) Head injury Encounter type: initial encounter Qualified Code(s): S09.90XA - Unspecified injury of head, initial encounter
--- NOTE | 2018-09-11 08:20 | Discharge Summary ---
Date of Service September 11, 2018 Admission HPI Per Admitting Provider History obtained from patient, family, and records. Medical history significant for hypertension, hyperlipidemia, arthritis, anxiety. Yesterday afternoon patient had an unwitnessed fall over the bed stand. Patient thinks her chronically arthritic left hip gave out causing her to fall and hit her head with subsequent LOC, unknown duration. Patient denies chest pain, S OB. Patient woke up with a bleeding head wound. She crawled to the phone outside her room and was able to contact 911. Patient brought to the ER by EMS. Medical History as above Surgical History : Carpal tunnel surgery, cataract surgery Admission Exam Per Admitting Provider Vital Signs (Past 24 Hours): Last Vital Signs Temp 36.5 C 09/08/18 21:23 Pulse 63 09/08/18 22:49 Resp 18 09/08/18 22:49 BP 184/107 H 09/08/18 22:49 Pulse Ox 96 09/08/18 22:49 Physical Exam: GENERAL: Pleasant, obese, slightly anxious, no respiratory distress SKIN: Normal color, warm HEENT: Dressing, posterior scalp, pink palpebral conjunctivae, no ptosis, dry buccal mucosa NECK : Supple, short, no tenderness CHEST : CTA, no tenderness HEART : RRR, systolic murmur ABDOMEN: Some distention, nontender EXTREMITIES : minimal LE swelling/tenderness, no other conspicuous deformities noted NEUROLOGIC : Coherent, no facial asymmetry, no other gross focality Principal Diagnosis Status post fall with concussion-resolved, minor scalp laceration-stitched( needs removal in 5-7 days) Discharge Exam Constitutional WD/WN, vitals as above Respiratory Auscultation: lungs clear to auscultation bilaterally and + diminished lung sounds Cardiovascular Rate/Rhythm: regular rate and regular rhythm Heart Sounds: normal S1 and normal S2 Gastrointestinal (Abdomen) normal bowel sounds, soft, nontender, no hepatosplenomegaly Neurologic PERRL, EOMI, accommodation nl, no face palsy, no dysarthria Discharge Data Allergies Allergy/AdvReac Type Severity Reaction Status Date / Time No Known Allergies Allergy Unverified 09/08/18 22:44 Consultations 09/08/18 23:23 ED Decision to Admit Stat 09/09/18 01:52 Consult Case Management - Discharge Planning Routine Consult Neurology Routine Ordered Studies 09/08/18 21:58 CT cervical spine wo con Stat 09/08/18 21:59 CT head/brain wo con Stat Hospital Course (1) Concussion: Probable head injury following fall Minimal skull laceration status post stitched CT scan has been negative Clinically a lot better 09/09 Appreciate neurology input and recommendation No further workup as per neurology Denies any symptoms and denies any headache She can be discharged home today DVT prophylaxis. SCDs RE bleeding scalp wound Full code (2) HTN (hypertension): Noted to have very high blood pressure in the emergency room Likely be the contributing factor for fall Continue current blood pressure medications Monitor BP-blood pressure is controlled (3) Head injury: As above with scalp injury Concussion Awaiting evaluation and recommendation PT and OT evaluation before discharge Scalp lacerated area looks better Speech can be removed as an outpatient Total Time Total Time Spent Total Time Spent (In Minutes): 35 minutes Total Time Includes: Examination of the Patient, Discharge Planning, Medication Reconciliation and Communication With Other Providers Discharge Plan Discharge Items Patient Disposition: Home - Self-Care Reason For Visit: L FEMORAL FX Discharge Diagnosis: Status post fall with concussion-resolved, minor scalp laceration-stitched(needs removal in 5-7 days) Condition: Good Discharge Goals: Decrease discomfort, Improve disease control and Improve function Activity: Resume your previous activity Non-emergency contact: Primary Care Provider Call non-emergency contact if: you have any medication questions and your symptoms worsen Follow-up/Referrals: Shirley Lovett DO [Primary Care Provider] - (The office will call with appointment) Diet: Heart Healthy Addtl Provider Instructions: Please take precaution to avoid fall Prescriptions: Continue metoprolol succinate 50 mg tablet extended release 24 hr 50 mg PO DAILY RF: 0 hydrocodone-acetaminophen 5-325 mg tablet 1 tab PO Q4H PRN (Reason: PAIN) RF: 0 simvastatin 10 mg tablet 10 mg PO DAILY RF: 0 acetaminophen [Tylenol Extra Strength] 500 mg Tablet 500 mg PO Q6H PRN (Reason: Pain) RF: 0 lorazepam 0.5 mg tablet 0.5 mg PO DAILY PRN (Reason: Anxiety) RF: 0 docusate sodium [Stool Softener] 100 mg Capsule 100 mg PO DAILY PRN (Reason: Constipation) RF: 0 cholecalciferol (vitamin D3) 1,000 unit Capsule 2,000 unit PO DAILY RF: 0 omega 6-dvi-itv-fish oil [[place]-3 Fish Oil] 910-1,400 mg Capsule 2 cap PO DAILY RF: 0 Calcium 500 + D 2 tab PO DAILY RF: 0 Stand-Alone Forms: [facility] Discharge Orders: Discharge Order (Routine); Ordered 09/10/18 Ordered By: Thaddeus Guerrero Admission Data Admit Date/Time: 09/09/18 01:11 Attending Provider: Thaddeus Guerrero Admit Provider: Rodney Alexander Primary Care Provider: Shirley Lovett Other Providers: Rodney Alexander ; Kylie Luo ; Mekhi Brown ; Kylie Dunbar ; Alonso Leigh ; Petar Mercado ; Unique Estevez Service: Telemetry Other Interventions: Discharge Summary Assessment (RN) Last Done: 09/10/18 14:38 DC Date/Time DO NOT enter until pt leaves facility: 09/10/18 15:13
--- NOTE | 2018-09-29 12:28 | Coding Letter ---
A supporting diagnosis is required for the test/procedure performed on this patient in order for us to be reimbursed by the patient's insurance. Please provide a supporting diagnosis for the following test/procedure listed below next to the test name along with your signature. *If there is no additional diagnosis for this patient that would support the following test/procedure please document that below next to the test/procedure. Test(s)/Procedure(s) that require a supporting diagnosis: * HEMOGLOBIN A1C DIAGNOSIS: Provider Signature: Date: Thank you Olinda Reyna Qulsar Information Management Once completed, please kindly fax back to [phone] For questions please call [phone] [facility]
--- NOTE | 2018-09-29 12:29 | Coding Query ---
A supporting diagnosis is required for the test/procedure performed on this patient in order for us to be reimbursed by the patient's insurance. Please provide a supporting diagnosis for the following test/procedure listed below next to the test name along with your signature. *If there is no additional diagnosis for this patient that would support the following test/procedure please document that below next to the test/procedure. Test(s)/Procedure(s) that require a supporting diagnosis: hyperglycemia * HEMOGLOBIN A1C DIAGNOSIS: Provider Signature: JNO Date: ____10/01/18___ Thank you Olinda Reyna [employer] Once completed, please kindly fax back to [phone] For questions please call [phone] [facility]
== END 2018-09-10 15:13 | disposition home or self-care (01) ==
LOC: ED 21:33 → 2W 21:33 → SUATTDRO 09-09 01:11 → 2W 09-09 01:25

== ENCOUNTER 2020-06-28 18:41 | Observation (INO) ==
--- NOTE | 2020-06-28 19:18 | Emergency Department Note ---
History of Present Illness General Chief complaint: Confusion Stated complaint: DELUSIONS, Time Seen by Provider: 06/28/20 18:47 Source: patient Mode of arrival: EMS Limitations: no limitations History of Present Illness Provider complaint: delusions, recent uti Onset (ago): month(s) Maximum Pain Intensity: 0 Associated symptoms: + denies other symptoms Treatments prior to arrival: none This is an 89-year-old female who presents via EMS from home where she lives independently due to concern for delusions today. Of note patient has a history of delusions and has previously undergone additional evaluation including an MRI. Patient was recently seen in follow-up by her PCP and was found to have hematuria and was started on Keflex for 1 week for presumed UTI. The note from the PCP states that a culture was sent, however none is available for viewing in the [employer] EMR at this time per the case filler. Patient states she has been feeling well while taking the antibiotic, states she is drinking plenty of water to stay well-hydrated, and only has 1 day left of the antibiotic. Patient does have a follow-up appointment scheduled with neurology next week, and has had a phone call visit with a psychologist who initially recommended testing of her hearing aids and auditory function prior to starting an antipsychotic. Patient had then been started on BuSpar and ultimately Seroquel, both low dose to try and help control her symptoms. Patient has been on these for several weeks and family states they have not noticed any significant improvement. A family member at bedside who is the POA states there is no pattern to her delusions and she is still performing other complex cognitive tasks including balancing her checkbook, cooking, and caring for her apartment. He states other resources had been utilized including Meals on Wheels and home care several days a week however the patient began to refuse these. He states there was some thought initially several months ago when this started in the spring that perhaps this was exacerbated due to the isolation of the current pandemic. Patient had no prior mental health history although he relates she had been on Ativan for years as needed for a diagnosis of "anxiety". Patient has had no other known exposures or sick contacts. He states he did count all of her pills and she has been taking her medications appropriately. Pt seen during a time of high acuity and national emergency pandemic while wearing PPE. Home Medications Home Medications Medication Instructions Recorded Confirmed Type cholecalciferol (vitamin D3) 2,000 unit PO QAM 12/24/18 10/13/20 History metoprolol succinate 50 mg PO DAILY 09/08/18 06/28/20 History simvastatin 10 mg PO HS 09/08/18 06/28/20 History acetaminophen 650 mg PO Q6H PRN 01/14/20 06/28/20 History calcium carbonate [Calcium 600] 600 mg PO DAILY 01/14/20 06/28/20 History omega 9-anq-vja-fish oil [Fish Oil] 1 cap PO QAM 01/14/20 06/28/20 History buspirone 10 mg PO BID 06/28/20 06/28/20 History cephalexin [Keflex] 500 mg PO BID 06/28/20 06/28/20 History chlorpheniramine-acetaminophen 1 tab PO Q6H PRN 06/28/20 06/28/20 History [Coricidin HBP Cold and Flu] docusate sodium 100 mg PO BID PRN 06/28/20 06/28/20 History quetiapine [Seroquel] 12.5 mg PO HS 06/28/20 06/28/20 History Allergies Allergy/AdvReac Type Severity Reaction Status Date / Time NSAIDS (Non-Steroidal AdvReac Mild bleeding Verified 06/28/20 23:21 Anti-Inflamma alendronate sodium AdvReac gerd Verified 06/28/20 23:21 lisinopril AdvReac renal cx Verified 06/28/20 23:21 Past Med/Surg History Medical History Arthritis Surgical History No history of previous surgery Family History Other Hypertension Social History Smoking Status: Never smoker Hx Alcohol Use: No Hx Substance Use: No Preferred Language: Bermudian Communication Ability: Effective 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 and A total of 10 systems reviewed and were otherwise negative Physical Exam Vital Signs Vital Signs - 24 hr 06/28/20 18:48 06/28/20 19:00 06/28/20 19:30 Temperature 36.8 C Temperature Source Oral Pulse Rate 58 L 55 L 58 L Pulse Rate from SpO2 Sensor Pulse Rhythm Regular Pulse Strength Normal Respiratory Rate 16 22 24 Respiratory Effort / Characteristics Non-Labored Respiratory Depth Normal Respiratory Pattern Regular Blood Pressure 191/102 H 186/92 H 188/105 H Blood Pressure Mean 131 107 130 Blood Pressure Position Lying Pulse Oximetry 96 97 96 Oxygen Delivery Method Room Air Room Air Room Air Sepsis Recent Fever Within 48 Hours No Sepsis New/Unexplained Change in Mental Status N/A Sepsis Action Taken by Nursing No Action Required 06/28/20 20:00 06/28/20 20:30 Temperature Temperature Source Pulse Rate 55 L 55 L Pulse Rate from SpO2 Sensor 55 L 55 L Pulse Rhythm Pulse Strength Respiratory Rate 21 23 Respiratory Effort / Characteristics Respiratory Depth Respiratory Pattern Blood Pressure 172/97 H 163/105 H Blood Pressure Mean 123 133 Blood Pressure Position Pulse Oximetry 97 97 Oxygen Delivery Method Room Air Room Air Sepsis Recent Fever Within 48 Hours Sepsis New/Unexplained Change in Mental Status Sepsis Action Taken by Nursing GENERAL: alert, well appearing, well nourished, no distress, non-toxic EYE EXAM: normal conjunctiva, PERRL and EOM's grossly intact, no nystagmus OROPHARYNX: no exudate, no erythema, lips, buccal mucosa, and tongue normal and mucous membranes are moist NECK: supple, no nuchal rigidity, no adenopathy, non-tender LUNGS: Clear to auscultation. Normal chest wall mechanics, no w/r/r HEART: no murmurs, S1 normal and S2 normal ABDOMEN: abdomen soft, non-tender, normo-active bowel sounds, no masses, no rebound or guarding. BACK: Back is symmetrical on inspection and there is no deformity, no midline tenderness, no CVA tenderness. SKIN: no rashes and no bruising UPPER EXTREMITIES: upper extremities are grossly normal. FROM, nml pulses b/l. LOWER EXTREMITIES: No pitting edema. FROM, nml pulses b/l. NEURO EXAM: Normal sensorium, cranial nerves II-XII grossly intact, normal speech, no gross weakness of arms, no gross weakness of legs. Gross sensation intact. No facial droop. Course Course 2114: Pt updated on results. Discussed options. No available safe discharge plan at this time and no one to stay with the patient. 2119: Discussed with Dr. Valdes, [facility] hospitalist. Administered Medications Amlodipine Besylate (Amlodipine Besylate 5 Mg Tab) 2.5 mg PO HS HERMANN Stop: 07/29/20 20:59 Last Admin: 06/29/20 20:57 Dose: 2.5 mg Documented by: [id number] Buspirone HCl (Buspirone 5 Mg Tab) 10 mg PO BID HERMANN Stop: 07/29/20 08:59 Last Admin: 06/29/20 20:57 Dose: 10 mg Documented by: [id number] Admin: 06/29/20 08:34 Dose: 10 mg Documented by: [id number] Enoxaparin Sodium (Enoxaparin Inj 30 Mg/0.3 Ml Syr) 30 mg SQ QAM HERMANN Stop: 07/29/20 08:59 Last Admin: 06/29/20 08:36 Dose: 30 mg Documented by: [id number] Metoprolol Succinate (Metoprolol Succ 25mg Ext Rel Tab) 25 mg PO DAILY HERMANN Stop: 07/29/20 08:59 Last Admin: 06/29/20 08:34 Dose: 25 mg Documented by: [id number] Quetiapine Fumarate (Quetiapine Fumarate 25 Mg Tablet) 25 mg PO HS HERMANN Stop: 07/29/20 20:59 Last Admin: 06/29/20 20:57 Dose: 25 mg Documented by: [id number] Simvastatin (Simvastatin 10 Mg Tab) 10 mg PO HS HERMANN Stop: 07/29/20 20:59 Last Admin: 06/29/20 20:57 Dose: 10 mg Documented by: [id number] Discontinued Medications Cephalexin HCl (Cephalexin 500 Mg Cap) 500 mg PO BID HERMANN Stop: 06/29/20 21:01 Last Admin: 06/29/20 20:57 Dose: 500 mg Documented by: [id number] Admin: 06/29/20 08:34 Dose: 500 mg Documented by: [id number] Lactated Ringer's (Lr) 1,000 mls @ 60 mls/hr IV .[id number] ONE Stop: 06/29/20 17:21 Last Infusion: 06/29/20 18:09 Dose: 0 mls/hr Documented by: [id number] Admin: 06/29/20 01:18 Dose: 60 mls/hr Documented by: [id number] Lisinopril (Lisinopril 2.5 Mg Tab) 2.5 mg PO ONE ONE Stop: 06/28/20 21:56 Last Admin: 06/28/20 22:23 Dose: 2.5 mg Documented by: [id number] Medical Decision Making Differential Diagnosis Differential diagnoses considered include mood disorder, infection, hypoglycemia, electrolyte abnormalities, cardiac sources, intracerebral event, toxicologic, neurologic, as well as others. Medical Records Attestation: I reviewed the patient's medical records. Home Medications Current Medication List: was personally reviewed by me Laboratory Data Attestation: I reviewed the patient's lab results. Result diagrams: 06/29/20 06:24 06/28/20 19:23 Lab Results 06/28/20 06/28/20 06/28/20 Range/Units 19:15 19:15 19:23 WBC (4.8-10.8) K/uL RBC (4.2-5.4) M/uL Hgb (12.0-16.0) g/dL Hct (37-47) % MCV (80-100) fL MCH (25-34) pg MCHC (32-36) g/dL RDW Std Deviation (36.4-46.3) fL RDW Coeff of Jennifer (11.5-14.5) % Plt Count (130-400) K/uL MPV (7.4-10.4) fL Immature Gran % (Auto) % Neut % (Auto) % Lymph % (Auto) % [place] % (Auto) % Eos % (Auto) % Baso % (Auto) % Neut # (Auto) (1.4-6.5) K/uL Lymph # (Auto) (1.2-3.4) K/uL [place] # (Auto) (0.11-0.59) K/uL Eos # (Auto) (0-0.5) K/uL Baso # (Auto) (0-0.2) K/uL Immature Gran # (Auto) (0.00-0.02) K/uL Sodium 137 (136-145) mmol/L Potassium 4.1 (3.5-5.1) mmol/L Chloride 106 (98-107) mmol/L Carbon Dioxide 25 (21-32) mmol/L Anion Gap 6.0 (3-11) BUN 27 H (7-18) mg/dl Creatinine 1.13 (0.6-1.2) mg/dl Est Cr Clr Drug Dosing 34.3 ml/min Est GFR ( Amer) 50.3 Est GFR (Non-Af Amer) 43.4 BUN/Creatinine Ratio 23.8 H (10-20) Glucose 92 (70-99) mg/dl Calcium 9.5 (8.5-10.1) mg/dl Magnesium 2.5 H (1.8-2.4) mg/dl Total Bilirubin 0.7 (0.2-1) mg/dl AST 13 L (15-37) U/L ALT 14 (12-78) U/L Alkaline Phosphatase 84 (45-117) U/L Total Protein 7.7 (6.4-8.2) gm/dl Albumin 3.7 (3.4-5.0) gm/dl Globulin 4.0 (2.5-4.0) gm/dl Albumin/Globulin Ratio 0.9 (0.9-2) TSH 1.400 (0.300-4.500) uIu/ml Urine Color Yellow Urine Appearance Clear (Clear) Urine pH 6.5 (4.5-7.5) Ur Specific Robards 1.014 (1.000-1.030) Urine Protein Negative (Negative) Urine Glucose (UA) Negative (Negative) Urine Ketones Negative (Negative) Urine Blood Negative (Negative) Urine Nitrite Negative (Negative) Urine Bilirubin Negative (Negative) Urine Urobilinogen Negative (Negative) Ur Leukocyte Esterase Negative (Negative) Salicylates (2.8-20) mg/dl Urine Opiates Screen Neg (Neg) Ur Methadone, Qual Neg (Neg) Acetaminophen (10-30) ug/ml Urine Barbiturates Neg (Neg) Ur Phencyclidine (PCP) Neg (Neg) U Amphetamin/Meth Scrn Neg (Neg) MDMA (Ecstasy) Screen Neg (Neg) U Benzodiazepines Scrn Neg (Neg) Ur Cocaine Metabolite Neg (Neg) U Marijuana (THC) Screen Neg (Neg) Ethyl Alcohol mg/dL (0-3) mg/dl 06/28/20 06/28/20 06/28/20 Range/Units 19:23 19:23 19:23 WBC 3.98 L (4.8-10.8) K/uL RBC 4.57 (4.2-5.4) M/uL Hgb 15.0 (12.0-16.0) g/dL Hct 43.5 (37-47) % MCV 95.2 (80-100) fL MCH 32.8 (25-34) pg MCHC 34.5 (32-36) g/dL RDW Std Deviation 46.3 (36.4-46.3) fL RDW Coeff of Jennifer 13.3 (11.5-14.5) % Plt Count 167 (130-400) K/uL MPV 9.8 (7.4-10.4) fL Immature Gran % (Auto) 0.3 % Neut % (Auto) 63.2 % Lymph % (Auto) 25.6 % [place] % (Auto) 9.3 % Eos % (Auto) 1.3 % Baso % (Auto) 0.3 % Neut # (Auto) 2.52 (1.4-6.5) K/uL Lymph # (Auto) 1.02 L (1.2-3.4) K/uL [place] # (Auto) 0.37 (0.11-0.59) K/uL Eos # (Auto) 0.05 (0-0.5) K/uL Baso # (Auto) 0.01 (0-0.2) K/uL Immature Gran # (Auto) 0.01 (0.00-0.02) K/uL Sodium (136-145) mmol/L Potassium (3.5-5.1) mmol/L Chloride (98-107) mmol/L Carbon Dioxide (21-32) mmol/L Anion Gap (3-11) BUN (7-18) mg/dl Creatinine (0.6-1.2) mg/dl Est Cr Clr Drug Dosing ml/min Est GFR ( Amer) Est GFR (Non-Af Amer) BUN/Creatinine Ratio (10-20) Glucose (70-99) mg/dl Calcium (8.5-10.1) mg/dl Magnesium (1.8-2.4) mg/dl Total Bilirubin (0.2-1) mg/dl AST (15-37) U/L ALT (12-78) U/L Alkaline Phosphatase (45-117) U/L Total Protein (6.4-8.2) gm/dl Albumin (3.4-5.0) gm/dl Globulin (2.5-4.0) gm/dl Albumin/Globulin Ratio (0.9-2) TSH (0.300-4.500) uIu/ml Urine Color Urine Appearance (Clear) Urine pH (4.5-7.5) Ur Specific [place] (1.000-1.030) Urine Protein (Negative) Urine Glucose (UA) (Negative) Urine Ketones (Negative) Urine Blood (Negative) Urine Nitrite (Negative) Urine Bilirubin (Negative) Urine Urobilinogen (Negative) Ur Leukocyte Esterase (Negative) Salicylates < 1.7 L (2.8-20) mg/dl Urine Opiates Screen (Neg) Ur Methadone, Qual (Neg) Acetaminophen < 2 L (10-30) ug/ml Urine Barbiturates (Neg) Ur Phencyclidine (PCP) (Neg) U Amphetamin/Meth Scrn (Neg) MDMA (Ecstasy) Screen (Neg) U Benzodiazepines Scrn (Neg) Ur Cocaine Metabolite (Neg) U Marijuana (THC) Screen (Neg) Ethyl Alcohol mg/dL < 3.0 (0-3) mg/dl ECG Data Attestation: I personally reviewed and interpreted this ECG as follows: Indication: + altered mental status Rate (beats per minute): 54 Rhythm: + sinus bradycardia ECG Intervals/blocks: + First degree AV block and + Right Bundle branch block ECG North: + Normal ECG ST segments: + Nonspecific ST abnormalities Blood Pressure Blood Pressure Findings: Normal blood pressure MDM Narrative Patient here well-appearing after which she describes as an emotional episode at home. Patient has been undergoing evaluation of the last 6 months according to family at bedside for possible early dementia versus an underlying depression/anxiety. Patient was slated to see neurology in a few weeks. She has previously seen psychology. She was recently diagnosed with a UTI and started on antibiotics from her PCP. Patient well-appearing at bedside and had no complaints. Patient does have insight into what is been going on, and was oriented. Patient able to provide reliable history. Family helps to give additional context in details. Patient hemodynamically stable. A recheck of labs in her urine were reassuring. Patient had already had an MRI of her brain several months back, I did review this in the EMR, and do not see any need for repeat neuroimaging at this time. Patient had a normal and nonfocal neuro exam. Discussed with patient and family at bedside concern for a safe discharge plan as patient does live alone. No ability to sure anyone to stay with the patient. Family is concerned that these episodes/events are starting to become more severe and lasting longer, and did not seem as consistent with something as simple as anxiety or panic attack. It is unclear if patient's medications that she was started on recently simply need to be adjusted and increase versus if there is other pathology to be considered. Due to an unsafe discharge plan, discussed case with hospitalist for additional evaluation and possible neurology consultation. An order was placed for continuous cardiac monitoring. The monitor shows a rate of _62_ with _normal sinus_ rhythm. Impression & Plan Delusions, Anxiety, Acute paranoia Discharge Plan Visit Data Chief Complaint: Confusion Stated Complaint: DELUSIONS, ED Provider: Shazia Teran Discharge Problem: Delusions, Anxiety, Acute paranoia Patient Disposition: Admitted As Inpatient Discharge Instructions Interventions: ED Discharge Assessment Last Done: 06/29/20 00:47
[2020-06-28 19:26] LABS: Appearance Urine Clear (Clear); Bilirubin Urine Negative (Negative); Blood Urine Negative (Negative); Color Urine Yellow; Glucose Urine UA Negative (Negative); Ketones Urine Negative (Negative); Leukocyte Esterase Urine Negative (Negative); Nitrite Urine Negative (Negative); Protein Urine Negative (Negative); Specific Gravity Urine 1.014 (1.000-1.030); Urobilinogen Urine Negative (Negative); pH Urine 6.5 (4.5-7.5)
[2020-06-28 19:58] LABS: Basophils # (auto) 0.01 K/uL (0-0.2); Basophils % (auto) 0.3 %; Eosinophils # (auto) 0.05 K/uL (0-0.5); Eosinophils % (auto) 1.3 %; Hematocrit (blood only) 43.5 % (37-47); Immature Granulocytes # (auto) 0.01 K/uL (0.00-0.02); Immature Granulocytes % (auto) 0.3 %; Lymphocytes # (auto) 1.02 K/uL (1.2-3.4); Lymphocytes % (auto) 25.6 %; Mean Corpuscular Hemoglobin 32.8 pg (25-34); Mean Corpuscular Hgb Conc 34.5 g/dL (32-36); Mean Corpuscular Volume 95.2 fL (80-100); Mean Platelet Volume 9.8 fL (7.4-10.4); Monocytes # (auto) 0.37 K/uL (0.11-0.59); Monocytes % (auto) 9.3 %; Neutrophils # (auto) 2.52 K/uL (1.4-6.5); Neutrophils % (auto) 63.2 %; Platelet Count 167 K/uL (130-400); RDW Coefficient of Variation 13.3 % (11.5-14.5); RDW Standard Deviation 46.3 fL (36.4-46.3); Red Blood Count 4.57 M/uL (4.2-5.4); White Blood Count 3.98 K/uL (4.8-10.8)
[2020-06-28 20:24] LABS: Albumin Level 3.7 gm/dl (3.4-5.0); BUN Creatinine Ratio 23.8 (10-20); Calcium 9.5 mg/dl (8.5-10.1); Creatinine Clr Calc Pharmacy 34.3 ml/min; Est GFR (African American) 50.3; Est GFR (Non-African American) 43.4; Magnesium 2.5 mg/dl (1.8-2.4); Potassium 4.1 mmol/L (3.5-5.1)
[2020-06-28 20:35] LABS: Albumin Globulin Ratio 0.9 (0.9-2); Bilirubin,Total 0.7 mg/dl (0.2-1); Thyroid Stimulating Hormone 1.4 uIu/ml (0.300-4.500); Total Protein 7.7 gm/dl (6.4-8.2)
[2020-06-28 20:46] LABS: Amphetamines+Metham, Urine Neg (Neg); Barbiturates, Urine Neg (Neg); Benzodiazepine, Urine Neg (Neg); Cocaine, Urine Neg (Neg); MDMA (Ecstacy), Urine Neg (Neg); Methadone, Urine Neg (Neg); Opiate, Urine Neg (Neg); Phencyclidine, Urine Neg (Neg)
[2020-06-28 20:48] LABS: Acetaminophen < 2 ug/ml (10-30); Salicylate < 1.7 mg/dl (2.8-20)
--- NOTE | 2020-06-28 22:53 | History & Physical Report ---
Date of Service June 28, 2020 Assessment & Plan (1) Asymptomatic hypertensive urgency: Possibly from anxiety PVD as per records Auditory hallucinations, unresponsive to low-dose Seroquel initiated by psychiatry outpatient 3 weeks ago. Bradycardia, secondary to home beta-bhavani Complicated UTI ongoing antibiotic Rx Safety concerns at home OBS Medical telemetry Initiate Norvasc Decrease maintenance beta-bhavani dose given bradycardia Psychiatry consult Re: Persistent auditory hallucinations on Seroquel Inpatient Neurology consult as per family request Re: auditory hallucinations rule out organic etiology PT OT eval DVT prophylaxis. Lovenox subcu DNR Patient's nephew requesting updates from providers. Mr. Tarik Reyna, contact #[phone]. Text document was generated using [employer] voice recognition software. It may contain grammatical or spelling errors. Kindly contact undersigned for clarification of any documentation item in question. History of Present Illness Despite Chief Complaint: Worsening auditory hallucinations Primary Care Provider: Shirley Lovett, DO History obtained from patient, family, and records. Medical history significant for hypertension, hyperlipidemia, PVD as per records arthritis, anxiety. Last confinement August 2018 for cerebral concussion. 6 months ago patient noted auditory hallucinations mostly temple hymns. Sometimes patient would hear voices telling her that "they would not hurt you." Patient denies suicidality. Family attributed hallucinations to some isolation stemming from the pandemic. BuSpar initiated outpatient for possible anxiety component. Patient seen at the ER 5 months ago for hallucinations. No tumors noted on contrast MRI of the brain. Patient evaluated by [facility] psychiatry outpatient 4 months ago. As per patient family, psychiatry recommended audiology evaluation of patient's hearing aids. Low-dose Seroquel recommended if no concerns from Audiology. Three weeks ago, low-dose Seroquel 12.5 mg daily started as per psychiatry recommendations after negative outpatient Audiology evaluation. On outpatient PCP visit last week, Keflex course initiated for hematuria symptoms attributed to UTI. Outpatient neurology consultation contemplated to rule out Parkinson's disease or vascular dementia as alternative explanations for persistent auditory hallucinations as per documentation. Patient brought to the ER tonight because of persistent auditory hallucinations despite Seroquel prescription and family concerns about patient ability to be by herself at home. Patient denies headache, chest pain, S OB, cough, abdominal pain symptoms. Medical History as above Surgical History : Carpal tunnel surgery, cataract surgery Family History : Breast cancer, dementia, heart disease Personal/Social history : Non-smoker, no EtOH intake, retired from office work, lives by herself Allergies Allergy/AdvReac Type Severity Reaction Status Date / Time NSAIDS (Non-Steroidal AdvReac Mild bleeding Verified 06/28/20 23:21 Anti-Inflamma alendronate sodium AdvReac gerd Verified 06/28/20 23:21 lisinopril AdvReac renal cx Verified 06/28/20 23:21 Home Medications Home Medications Medication Instructions Recorded Confirmed Type cholecalciferol (vitamin D3) 2,000 unit PO QAM 09/08/18 06/28/20 History metoprolol succinate 50 mg PO DAILY 09/08/18 06/28/20 History simvastatin 10 mg PO HS 09/08/18 06/28/20 History acetaminophen 650 mg PO Q6H PRN 01/14/20 06/28/20 History calcium carbonate [Calcium 600] 600 mg PO DAILY 01/14/20 06/28/20 History omega 8-xae-ckx-fish oil [Fish Oil] 1 cap PO QAM 01/14/20 06/28/20 History buspirone 10 mg PO BID 06/28/20 06/28/20 History cephalexin [Keflex] 500 mg PO BID 06/28/20 06/28/20 History chlorpheniramine-acetaminophen 1 tab PO Q6H PRN 06/28/20 06/28/20 History [Coricidin HBP Cold and Flu] docusate sodium 100 mg PO BID PRN 06/28/20 06/28/20 History quetiapine [Seroquel] 12.5 mg PO HS 06/28/20 06/28/20 History Past Med/Surg History Medical History Arthritis Surgical History No history of previous surgery Family History Other Hypertension Social History Smoking Status: Never smoker Hx Alcohol Use: No Hx Substance Use: No Preferred Language: Rwandan Communication Ability: Effective Rn Community Required: No Beliefs That Will Affect Care: None Current Living Situation: Alone Other Information That Helps Us Care for You: No Feels Safe at Home: No Is there a partner from a previous relationship who is making you feel unsafe now?: No Any Concerns about Your Family Situation: No Would You Like to Speak to Someone About Your Situation: No Safety Concerns: Feels Safe At This Time Assistive Devices: Glasses and Hearing Aid - Bilateral Review of Systems Review of Systems: As per HPI, all 10 systems reviewed, all other ROS negative Physical Exam Physical Exam: GENERAL: Comfortable, pleasant, obese, oriented, no respiratory distress SKIN: Normal color, warm HEENT: Bespectacled, pink palpebral conjunctivae, no ptosis, dry buccal mucosa NECK : Supple, no tenderness CHEST : CTA, no tenderness HEART : Bradycardic, systolic murmur ABDOMEN: Some distention, nontender EXTREMITIES : No LE swelling/tenderness, no other conspicuous deformities noted NEUROLOGIC : Coherent, no facial asymmetry, mild hearing impairment, no other gross focality Results & Data Results & Data ([facility]) Vital Signs (Past 12 Hours) Vital Signs Temp Pulse Resp BP Pulse Ox 06/28/20 22:00 55 L 23 139/98 96 06/28/20 21:48 61 24 182/97 H 98 06/28/20 21:01 56 L 24 159/102 H 98 06/28/20 20:30 55 L 23 163/105 H 97 06/28/20 20:00 55 L 21 172/97 H 97 06/28/20 19:30 58 L 24 188/105 H 96 06/28/20 19:00 55 L 22 186/92 H 97 06/28/20 18:48 36.8 C 58 L 16 191/102 H 96 Laboratory Results Laboratory Results WBC 3.98 K/uL (4.8-10.8) L 06/28/20 19:23 RBC 4.57 M/uL (4.2-5.4) 06/28/20 19:23 Hgb 15.0 g/dL (12.0-16.0) 06/28/20 19:23 Hct 43.5 % (37-47) 06/28/20 19:23 MCV 95.2 fL (80-100) 06/28/20 19:23 MCH 32.8 pg (25-34) 06/28/20 19:23 MCHC 34.5 g/dL (32-36) 06/28/20 19: RDW Std Deviation 46.3 fL (36.4-46.3) 06/28/20: RDW Coeff of Jennifer 13.3 % (11.5-14.5) 06/28/20: Plt Count 167 K/uL (130-400) 06/28/20: MPV 9.8 fL (7.4-10.4) 06/28/20: Immature Gran % (Auto) 0.3 % 06/28/20: Neut % (Auto) 63.2 % 06/28/20: Lymph % (Auto) 25.6 % 06/28/20: Holt % (Auto) 9.3 % 06/28/20: Eos % (Auto) 1.3 % 06/28/20: Baso % (Auto) 0.3 % 06/28/20: Neut # (Auto) 2.52 K/uL (1.4-6.5) 06/28/20: Lymph # (Auto) 1.02 K/uL (1.2-3.4) L 06/28/20: Holt # (Auto) 0.37 K/uL (0.11-0.59) 06/28/20: Eos # (Auto) 0.05 K/uL (0-0.5) 06/28/20: Baso # (Auto) 0.01 K/uL (0-0.2) 06/28/20: Immature Gran # (Auto) 0.01 K/uL (0.00-0.02) 06/28/20: Sodium 137 mmol/L (136-145) 06/28/20: Potassium 4.1 mmol/L (3.5-5.1) 06/28/20: Chloride 106 mmol/L (98-107) 06/28/20: Carbon Dioxide 25 mmol/L (21-32) 06/28/20 19: Anion Gap 6.0 (3-11) 06/28/20: BUN 27 mg/dl (7-18) H 06/28/20: Creatinine 1.13 mg/dl (0.6-1.2) 06/28/20 19: Est Cr Clr Drug Dosing 34.3 ml/min 06/28/20 19: Est GFR ( Amer) 50.3 06/28/20 19: Est GFR (Non-Af Amer) 43.4 06/28/20 19: BUN/Creatinine Ratio 23.8 (10-20) H 06/28/20 19: Glucose 92 mg/dl (70-99) 06/28/20 19: Calcium 9.5 mg/dl (8.5-10.1) 06/28/20 19: Magnesium 2.5 mg/dl (1.8-2.4) H 06/28/20: Total Bilirubin 0.7 mg/dl (0.2-1) 06/28/20 19: AST 13 U/L (15-37) L 06/28/20 19: ALT 14 U/L (12-78) 06/28/20 19: Alkaline Phosphatase 84 U/L (45-117) 06/28/20 19: Total Protein 7.7 gm/dl (6.4-8.2) 06/28/20 19: Albumin 3.7 gm/dl (3.4-5.0) 06/28/20: Globulin 4.0 gm/dl (2.5-4.0) 06/28/20 19: Albumin/Globulin Ratio 0.9 (0.9-2) 06/28/20: TSH 1.400 uIu/ml (0.300-4.500) 06/28/20 19: Urine Color Yellow 06/28/20: Urine Appearance Clear (Clear) 06/28/20: Urine pH 6.5 (4.5-7.5) 06/28/20: Ur Specific [place] 1.014 (1.000-1.030) 06/28/20: Urine Protein Negative (Negative) 06/28/20: Urine Glucose (UA) Negative (Negative) 06/28/20: Urine Ketones Negative (Negative) 06/28/20 Urine Blood Negative (Negative) 10/13/20 19:15 Urine Nitrite Negative (Negative) 06/28/20 19:15 Urine Bilirubin Negative (Negative) 06/28/20 19:15 Urine Urobilinogen Negative (Negative) 06/28/20 19:15 Ur Leukocyte Esterase Negative (Negative) 06/28/20 19:15 Salicylates < 1.7 mg/dl (2.8-20) L 06/28/20 19:23 Urine Opiates Screen Neg (Neg) 06/28/20 19:15 Ur Methadone, Qual Neg (Neg) 06/28/20 19:15 Acetaminophen < 2 ug/ml (10-30) L 06/28/20 19:23 Urine Barbiturates Neg (Neg) 06/28/20 19:15 Ur Phencyclidine (PCP) Neg (Neg) 06/28/20 19:15 U Amphetamin/Meth Scrn Neg (Neg) 06/28/20 19:15 MDMA (Ecstasy) Screen Neg (Neg) 06/28/20 19:15 U Benzodiazepines Scrn Neg (Neg) 06/28/20 19:15 Ur Cocaine Metabolite Neg (Neg) 06/28/20 19:15 U Marijuana (THC) Screen Neg (Neg) 06/28/20 19:15 Ethyl Alcohol mg/dL < 3.0 mg/dl (0-3) 06/28/20 19:23 Diagnostic Findings EKG as per my interpretation: Rate 55, sinus bradycardia, 1 AVB, RBBB, no ischemia
[2020-06-29] MEDS ORDERED: LACTATED RINGER'S 1,000 ML IV ONE (00:42)
[2020-06-29] MEDS ORDERED: PROMETHAZINE HCL 6.25 MG in SODIUM CHLORIDE 0.9% 50 ML IV PRN (00:42)
[2020-06-29] MEDS ORDERED: ACETAMINOPHEN 325 MG TAB PO PRN (01:23)
[2020-06-29] MEDS ORDERED: DOCUSATE SODIUM 100 MG CAP PO PRN (01:28)
[2020-06-29 06:56] LABS: Basophils # (auto) 0.01 K/uL (0-0.2); Basophils % (auto) 0.2 %; Eosinophils # (auto) 0.09 K/uL (0-0.5); Eosinophils % (auto) 2.2 %; Hematocrit (blood only) 45.3 % (37-47); Hemoglobin 15.2 g/dL (12.0-16.0); Lymphocytes # (auto) 1.08 K/uL (1.2-3.4); Lymphocytes % (auto) 26.5 %; Mean Corpuscular Hemoglobin 32.2 pg (25-34); Mean Corpuscular Hgb Conc 33.6 g/dL (32-36); Mean Platelet Volume 10.2 fL (7.4-10.4); Monocytes # (auto) 0.36 K/uL (0.11-0.59); Monocytes % (auto) 8.8 %; Neutrophils # (auto) 2.53 K/uL (1.4-6.5); Neutrophils % (auto) 62.3 %; Platelet Count 168 K/uL (130-400); RDW Coefficient of Variation 13.4 % (11.5-14.5); RDW Standard Deviation 47.1 fL (36.4-46.3); Red Blood Count 4.72 M/uL (4.2-5.4); White Blood Count 4.07 K/uL (4.8-10.8)
[2020-06-29 07:06] LABS: Prothrombin Time 10.9 Seconds (9.0-12.0)
[2020-06-29] MEDS: METOPROLOL SUCC 25MG EXT REL TAB PO SCH (08:34)
[2020-06-29] MEDS: busPIRone 5 MG TAB PO SCH ×2 (08:34→20:57)
[2020-06-29] MEDS: cephALEXin 500 MG CAP PO SCH ×2 (08:34→20:57)
[2020-06-29] MEDS: ENOXAPARIN INJ 30 MG/0.3 ML SYR SQ SCH (08:36)
--- NOTE | 2020-06-29 13:04 | Electrocardiogram Report ---
Test Reason : Blood Pressure : / mmHG Vent. Rate : 054 BPM Atrial Rate : 054 BPM P-R Int : 224 ms QRS Dur : 122 ms QT Int : 440 ms P-R-T Axes : 077 063 006 degrees QTc Int : 417 ms Sinus bradycardia with 1st degree A-V block Right bundle branch block Abnormal ECG When compared with ECG of 14-JAN-2020 16:33, No significant change was found Confirmed by Morris Crook ([id number]) on 06/29/2020 1:04:12 PM Referred By: REFERRED SELF Confirmed By:Morris Crook
--- NOTE | 2020-06-29 15:08 | Psychiatric Consultation ---
Date of Consultation June 29, 2020 Impression / Recommendations Impression Dr. Kary Elizabeth was directly involved in review and discussion of the patient's case and participated in medical decision making regarding treatment recommendations. RECOMMENDATIONS: 06/29 - Psychiatric consultation requested to evaluate patient for reported auditory hallucinations. These have reportedly been occurring intermittently since 01/2020, but worsened recently. Pt had also been treated for a UTI recently. - Hospital documentation reviewed, case briefly discussed with neurology. Discussed that although hallucinations do not present an acute safety risk, they have become more distressing to the patient - to the point that she is reporting neighbors to her green building materials designer, believing that they are intentionally playing music to disturb her. Pt has a long history of anxiety, per her report, but denies history of auditory hallucinations prior to 01/2020. At this time, there does not seem to be a clear psychiatric diagnosis directly contributing to the presence of auditory hallucinations. - [facility] to [facility], so etiology of initiation of quetiapine is unclear - as prescription was ordered by patient's PCP. We did discuss potential to titrate quetiapine to 25mg qHS to better target the hallucinations. Reviewed risks, benefits, and potential side effects - specifically including black box warning for risk of mortality associated with use of antipsychotic medications in the setting of possible dementia. Pt verbalized understanding and was agreeable with titrating quetiapine. It was felt that patient demonstrated capacity to make this specific decision; however, she permitted contact with her medical POA to review recommendations as well. QTc on presentation in ED was WNL at 417. - Pt denied SI/HI and other acute safety concerns. No indication of need for inpatient psychiatric hospitalization. She is reporting she is to meet with an outpatient psychiatrist in ~2 weeks. We will attempt to gather more information about this appointment with plans to coordinate care appropriately. - Appreciate the opportunity to participate in the care of this patient. Please reach out to our service with any additional questions or updates. Psych History Identifying Data 89-year-old female admitted medically on 06/28/2020 after presenting to the ED with complaints of auditory hallucinations that have worsened over the past few days. Pt was seen in the ED in 01/2020 for similar concerns. Neurology and psychiatry have been consulted to further assess the presence of these auditory hallucinations. Chief Complaint "I thought I was doing fine, but then I had a set-back with this audio thing. I've been hearing gnosticist hymns through my apartment." History of Present Illness Silvia Reyna is an 89-year-old female admitted medically on 06/28/2020 after presenting to the ED with reports of worsening auditory hallucinations. Pt was seen in the the ED in 01/2020 for similar complaints. Psychiatric and neurological consultations were requested during this admission to evaluate this further. It is reported that patient was recently started on quetiapine to target the hallucinations - reports stating this was started following a ps ychiatric evaluation, though prescription history suggests it is prescribed by patient's PCP. It is reported that current dosage has not been helpful to reduce the hallucinations. Pt is cooperative with psychiatric assessment, and admits "I thought I was doing fine, but then I had a set-back with this audio thing." Pt states she was encouraged to have her hearing assessed to rule out audiological concern. Pt states she had been started on buspirone for anxiety and feels this medication has been working well. She reports recent prescription for quetiapine, and does not yet feel this medication has been beneficial. Pt reports hearing "mostly gnosticist hymns", but states she has started to believe that her neighbors are intentionally play the music to disturb her - leading her to file complaints with her green building materials designer. Pt denies acute safety concerns related to the hallucinations, but admits they are becoming more distressing to her. Pt states her current mood is "a combination of feelings, feeling sad because I was so sure I was getting better." We did discuss option to further titrate quetiapine, which patient is agreeable with and believes this was the plan set forth by her outpatient providers. Reviewed benefits and risk, specifically black box warning for antipsychotic use in the setting of possible dementia. Pt reported understanding and was still agreeable with increasing her dose to 25mg to reduce level of distress, provide better quality of life, and target hallucinations. Pt reports she is to be meeting with an outpatient psychiatric prescriber in ~2 weeks. She denied other needs from our service at this time. She did sign an JANE to allow us to communicate with her medical POA. Past Psychiatric History Current Psychiatric Diagnosis: Anxiety Previous Psych Admissions: Denied History of Previous Suicide Attempt: No Past Medication Trials: Pt reports long history of anxiety - having utilized lorazepam as needed - stating "they stopped it because I was overdosing myself" Recent prescriptions for buspirone and quetiapine Allergies Allergy/AdvReac Type Severity Reaction Status Date / Time NSAIDS (Non-Steroidal AdvReac Mild bleeding Verified 06/28/20 23:21 Anti-Inflamma alendronate sodium AdvReac gerd Verified 06/28/20 23:21 lisinopril AdvReac renal cx Verified 06/28/20 23:21 Home Medications Home Medications Medication Instructions Recorded Confirmed Type cholecalciferol (vitamin D3) 2,000 unit PO QAM 09/08/18 06/28/20 History metoprolol succinate 50 mg PO DAILY 09/08/18 06/28/20 History simvastatin 10 mg PO HS 09/08/18 06/28/20 History acetaminophen 650 mg PO Q6H PRN 01/14/20 06/28/20 History calcium carbonate [Calcium 600] 600 mg PO DAILY 01/14/20 06/28/20 History omega 7-htt-qax-fish oil [Fish Oil] 1 cap PO QAM 01/14/20 06/28/20 History buspirone 10 mg PO BID 06/28/20 06/28/20 History cephalexin [Keflex] 500 mg PO BID 06/28/20 06/28/20 History chlorpheniramine-acetaminophen 1 tab PO Q6H PRN 06/28/20 06/28/20 History [Coricidin HBP Cold and Flu] docusate sodium 100 mg PO BID PRN 06/28/20 06/28/20 History quetiapine [Seroquel] 12.5 mg PO HS 06/28/20 06/28/20 History Substance Abuse History Denies significant alcohol or tobacco use. Denies use of illicit substances. Personal History Living Arrangements: Home (lives alone ) Employment Status: Retired Marital Status: Single Patient History Medical History Arthritis Surgical History No history of previous surgery Family History Other Hypertension Social History Smoking Status: Never smoker Hx Alcohol Use: No Hx Substance Use: No Preferred Language: Vincentian Communication Ability: Effective Target Setter Required: No marital status: / Current Living Situation: Alone Other Information That Helps Us Care for You: No Feels Safe at Home: No Is there a partner from a previous relationship who is making you feel unsafe now?: No Any Concerns about Your Family Situation: No Would You Like to Speak to Someone About Your Situation: No Safety Concerns: Feels Safe At This Time Assistive Devices: Glasses and Walker Physical Exam Psychiatric: Orientation: alert and cooperative Apperance: appropriately dressed, appropriately groomed and appeared stated age Eye Contact: good eye contact Motor Behavior: no abnormal motor movements Speech: normal rate/rhythm/volume of speech Affect: + blunted affect Mood: + depressed mood ("I feel sad because I was so sure I was getting better") Thought Process: goal directed thought process and + perseveration (on believing music is being played into her apartment ) Thought Content: + paranoid and + delusions; no hopelessness believes neighbors are intentionally playing music to disturb her Suicidal Thoughts: denies suicidal thoughts, denies suicidal plan and denies suicidal intent Homicidal Thoughts: denies homicidal thoughts and denies homicidal intent Hallucinations: + auditory hallucinations (admits to occaionally hearing voices, primarily hearing gnosticist hymns); no visual hallucinations Cognition: attention grossly intact and language grossly intact Estimated Intelligence: consistent with education level Insight: + limited insight Judgement: + fair judgement Vital Signs (Past 24 Hours): Last Vital Signs Temp 36.4 C L 06/29/20 11:19 Pulse 55 L 06/29/20 11:19 Resp 18 06/29/20 11:19 BP 119/75 06/29/20 11:19 Pulse Ox 95 06/29/20 11:19 Review of Systems Constitutional: denied Cardiovascular: denied Respiratory: denied Gastrointestinal: denied Neurological: reports auditory hallucinations, primarily of gnosticist hymns playing Psychiatric: denies symptoms other than stated above Total of at least 10 systems reviewed, pertinent positives as above and in HPI. Results & Data (PS[facility]) Medications Administered Buspirone HCl (Buspirone 5 Mg Tab) 10 mg PO BID [facility] Stop: 07/29/20 08:59 Last Admin: 06/29/20 08:34 Dose: 10 mg Documented by: [id number] Cephalexin HCl (Cephalexin 500 Mg Cap) 500 mg PO BID [facility] Stop: 06/29/20 21:01 Last Admin: 06/29/20 08:34 Dose: 500 mg Documented by: [id number] Enoxaparin Sodium (Enoxaparin Inj 30 Mg/0.3 Ml Syr) 30 mg SQ QAM HERMANN Stop: 07/29/20 08:59 Last Admin: 06/29/20 08:36 Dose: 30 mg Documented by: [id number] Lactated Ringer's (Lr) 1,000 mls @ 60 mls/hr IV .[id number] Stop: 06/29/20 17:21 Last Admin: 06/29/20 01:18 Dose: 60 mls/hr Documented by: [id number] Metoprolol Succinate (Metoprolol Succ 25mg Ext Rel Tab) 25 mg PO DAILY [facility] Stop: 07/29/20 08:59 Last Admin: 06/29/20 08:34 Dose: 25 mg Documented by: [id number] Coding Level of Care Code 47858 U Intl Hosp Care Lvl 2
--- NOTE | 2020-06-29 16:50 | Hospitalist Progress Note ---
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 Lovenox subcu DNR Patient's nephew requesting updates from providers. Mr. Tarik Reyna, contact #[phone]. (3) HTN (hypertension): Admission and Anticipated Discharge Date Admission Date: June 28, 2020 Subjective 06/29/2020 Patient was seen and examined in medical telemetry unit She still complains to have auditory hallucinations without any other neurologic symptoms She denies any ringing in the ears and she has been using hearing aid for deafness Review of Systems Review of Systems: All systems reviewed and are unremarkable except as noted below Neurologic: + headache(s) Psychiatric: + auditory hallucinations (In the form of music ) Physical Exam Physical Exam: Sitting on a chair without any acute distress Constitutional: well developed, well nourished and + acute distress; not ill appearing Eyes: PERRL, conjunctivae normal, anicteric sclerae ENMT: external ear and nose normal, oropharynx normal Neck: trachea midline, no thyromegaly Respiratory: normal respiratory effort; no respiratory distress Auscultation: lungs clear to auscultation bilaterally Cardiovascular: Rate/Rhythm: regular rate and regular rhythm Heart Sounds: no murmur Gastrointestinal (Abdomen): Inspection/Auscultation: abdomen normal to inspection and normal bowel sounds; abdomen not distended Percussion/Palpation: abdomen soft; abdomen nontender Musculoskeletal: No acute arthritis involving any joint Neurologic: moves all extremities; no focal motor deficits Speech / Cognition: normal speech Has ongoing auditory hallucinations Psychiatric: A+Ox3, euthymic affect Lymphatic: no cervical or axillary lymphadenopathy Results & Data Results & Data ([facility]) Vital Signs (Past 12 Hours) Vital Signs Temp Pulse Pulse Resp BP BP Pulse Ox 06/29/20 16:34 36.7 C 62 18 141/78 H 97 06/29/20 15:17 75 06/29/20 11:19 36.4 C L 55 L 18 119/75 95 06/29/20 08:37 74 06/29/20 07:45 36.4 C L 52 L 20 138/88 97 06/29/20 07:00 72 06/29/20 04:52 60 Laboratory Results Short CBC 06/28/20 06/29/20 Range/Units 19:23 06:24 WBC 3.98 L 4.07 L (4.8-10.8) K/uL Hgb 15.0 15.2 (12.0-16.0) g/dL Hct 43.5 45.3 (37-47) % Plt Count 167 168 (130-400) K/uL BMP 06/28/20 19:23 Sodium 137 Potassium 4.1 Chloride 106 Carbon Dioxide 25 BUN 27 H Creatinine 1.13 Glucose 92 Calcium 9.5 Liver Function 06/28/20 Range/Units 19:23 Total Bilirubin 0.7 (0.2-1) mg/dl AST 13 L (15-37) U/L ALT 14 (12-78) U/L Alkaline Phosphatase 84 (45-117) U/L Albumin 3.7 (3.4-5.0) gm/dl Urine 06/28/20 Range/Units 19:15 Urine Color Yellow Urine Appearance Clear (Clear) Urine pH 6.5 (4.5-7.5) Ur Specific [place] 1.014 (1.000-1.030) Urine Protein Negative (Negative) Urine Glucose (UA) Negative (Negative) Medications Administered Current Inpatient Medications Acetaminophen (Acetaminophen 325 Mg Tab) 650 mg PO Q4H PRN PRN Reason: Pain or Fever Stop: 07/29/20 01:22 Amlodipine Besylate (Amlodipine Besylate 5 Mg Tab) 2.5 mg PO HS HERMANN Stop: 07/29/20 20:59 Buspirone HCl (Buspirone 5 Mg Tab) 10 mg PO BID HERMANN Stop: 07/29/20 08:59 Last Admin: 06/29/20 08:34 Dose: 10 mg Documented by: Cephalexin HCl (Cephalexin 500 Mg Cap) 500 mg PO BID HERMANN Stop: 06/29/20 21:01 Last Admin: 06/29/20 08:34 Dose: 500 mg Documented by: Docusate Sodium (Docusate Sodium 100 Mg Cap) 100 mg PO BID PRN PRN Reason: Constipation Stop: 07/29/20 01:27 Enoxaparin Sodium (Enoxaparin Inj 30 Mg/0.3 Ml Syr) 30 mg SQ QAM HERMANN Stop: 07/29/20 08:59 Last Admin: 06/29/20 08:36 Dose: 30 mg Documented by: Lactated Ringer's (Lr) 1,000 mls @ 60 mls/hr IV .[id number] ONE Stop: 06/29/20 17:21 Last Admin: 06/29/20 01:18 Dose: 60 mls/hr Documented by: Promethazine HCl 6.25 mg/ (Sodium Chloride) 50.25 mls @ 201 mls/hr IV Q6H PRN PRN Reason: Nausea And Vomiting Stop: 07/29/20 00:41 Metoprolol Succinate (Metoprolol Succ 25mg Ext Rel Tab) 25 mg PO DAILY HERMANN Stop: 07/29/20 08:59 Last Admin: 06/29/20 08:34 Dose: 25 mg Documented by: Quetiapine Fumarate (Quetiapine Fumarate 25 Mg Tablet) 12.5 mg PO HS HERMANN Stop: 07/29/20 20:59 Simvastatin (Simvastatin 10 Mg Tab) 10 mg PO HS [facility] Stop: 07/29/20 20:59
--- NOTE | 2020-06-29 18:58 | Consultation Report ---
DATE OF CONSULTATION: 06/29/2020 REASON FOR CONSULTATION: Auditory hallucinations. HISTORY OF PRESENT ILLNESS: The patient is an 89-year-old right-handed female admitted for hypertensive urgency, brought into the hospital because of auditory hallucinations, which have recently increased. Seroquel had been initiated by psychiatry as an outpatient 3 weeks ago. The patient indicates that since the spring, she has had some auditory hallucinations, mostly songs; however, she has heard threatening voices, which she attributes to the machine maintenance supervisor at her facility. She indicates some difficulty with short-term memory and occasional difficulty with word finding. She does her own bill paying and medication administration. She indicates none of her medicines were new or changed in dose. She does indicate that she was convinced to change her phone to a provider, which was matteo and had signed a 2-year commitment and then lost the money from that commitment. She also speaks of being somewhat suspicious of a niece who arranged home health in the patient's home without telling her. Otherwise, the patient indicates that she is fairly functional. She has no history of stroke. She did have a mild concussion 2 years ago with a fall. There is no family history of cognitive dysfunction. As outpatient last week, Keflex was initiated for hematuria symptoms related to urinary tract infection. The patient was brought to the ER because of the persistent auditory hallucinations despite Seroquel. PAST MEDICAL HISTORY: Notable for arthritis, presumed hyperlipidemia. PAST SURGICAL HISTORY: Carpal tunnel, cataract surgery. SOCIAL HISTORY: Nonsmoker, nondrinker. The patient lives alone in assisted living. The patient reports she has no children, a nephew is power of contracts attorney. FAMILY HISTORY: No family history of cognitive dysfunction. Breast cancer and it says dementia and heart disease. ALLERGIES: NONSTEROIDALS, ALENDRONATE AND LISINOPRIL. HOME MEDICATIONS: Vitamin D3, metoprolol, simvastatin, Tylenol, calcium, fish oil, buspirone, Keflex, Coricidin HBP Cold and Flu p.r.n., Colace p.r.n. and Seroquel 12.5 at bedtime. The patient has had a prior MRI of the brain performed in our facility in January, which showed a focus of increased T2 signal within the white matter, likely on a small vessel basis. No acute intracranial findings. There is mild atrophy. There has been no additional imaging on this admission. Her lab data was notable for a white count of 3.98, H and H were normal, platelet count was normal. Chemistry profile notable for BUN of 27, creatinine of 1.1, glucose of 92, magnesium of 2.5, normal transaminases. TSH 1.4. Urinalysis negative. Tox screen negative. The patient's electrocardiogram, sinus bradycardia with first degree AV block, right bundle branch block. When compared to EKG of 12/2019, no significant change. PHYSICAL EXAMINATION: VITAL SIGNS: Currently are 36.7, 62, 18, 141/78, 99%. GENERAL: The patient is awake and alert, normal speech and language. Affect is appropriate. She is oriented x3. Has 2/3 memory at 3 minutes. No aphasia or right/left confusion. NECK: No carotid bruits. HEART: No heart murmurs. Heart is regular rate and rhythm. NEUROLOGIC: Pupils are postsurgical. There is normal motility, visual lance, facial sensation and facial symmetry. Tongue is midline. Motor 5/5, no drift. Normal rapid alternating movements. Diminished lower extremity reflexes. Downgoing toes. Vibration is present at the toes. [id number] and [id number]-[id number] were normal. Gait was not tested. IMPRESSION AND PLAN: Auditory hallucinations of relatively new onset suggests there is some mild underlying cognitive impairment, which predisposes the patient.She may be recently more symptomatic due to a urinary tract infection There is nothing to suggest by history that these represent a seizure. In terms of the patient's home medications, I wonder if there is any option other than beta blockade, which can cause central nervous system effects in elderly patients. I do not know to what degree an outpatient evaluation for cognitive dysfunction has been performed, but we would check a B12, folate and an RPR and supplement or treat as appropriate. In terms of her auditory hallucinations, for the most part, they are nonthreatening, but to a certain extent, they have been somewhat threatening. Consider an increase in the dose of Seroquel. Pt can see us as an outpt MTDD
[2020-06-29] MEDS ORDERED: amLODIPine BESYLATE 5 MG TAB PO SCH (21:00)
[2020-06-29] MEDS ORDERED: SIMVASTATIN 10 MG TAB PO SCH (21:00)
[2020-06-29] MEDS ORDERED: QUEtiapine FUMARATE 25 MG TABLET PO SCH ×2 (21:00)
[2020-06-30] MEDS: METOPROLOL SUCC 25MG EXT REL TAB PO SCH (08:04)
[2020-06-30] MEDS: ENOXAPARIN INJ 30 MG/0.3 ML SYR SQ SCH (08:04)
[2020-06-30] MEDS: busPIRone 5 MG TAB PO SCH (08:04)
[2020-06-30 10:31] LABS: Folate (Folic Acid) 17.26 ng/ml (>5.38)
--- NOTE | 2020-06-30 12:53 | Hospitalist Progress Note ---
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 Appreciate psychiatric input and recommendation Awaiting neurology evaluation-appreciate input and recommendation Still has minimal auditory hallucinations without any other symptoms (2) Asymptomatic hypertensive urgency: Possibly from anxiety Blood pressure remains stable Continue current medications Bradycardia, secondary to home beta-bhavani PVD as per records Patient remains upper side of normal Complicated UTI ongoing antibiotic Rx Has been getting Keflex Will finish the course of antibiotic Hyperlipidemia Continue statin Safety concerns at home Will need PT and OT evaluation and possible placement PT OT recommended home Patient will be going home with more home help from [employer] at home DVT prophylaxis. Lovenox subcu DNR Patient's nephew requesting updates from providers. Mr. Tarik Reyna, contact #[phone]. (3) HTN (hypertension): Admission and Anticipated Discharge Date Admission Date: June 28, 2020 Subjective 06/29/2020 Patient was seen and examined in medical telemetry unit She still complains to have auditory hallucinations without any other neurologic symptoms She denies any ringing in the ears and she has been using hearing aid for deafness 06/30/2020 The patient was seen and examined in medical telemetry unit She still complains to have auditory hallucination but denies any other symptoms She has had physical therapy and she wants to go home today Review of Systems Review of Systems: All systems reviewed and are unremarkable except as noted below Neurologic: no headache(s) Psychiatric: + auditory hallucinations (In the form of music ) Physical Exam Physical Exam: Sitting on a chair without any acute distress Constitutional: well developed, well nourished and + acute distress; not ill appearing Eyes: PERRL, conjunctivae normal, anicteric sclerae ENMT: external ear and nose normal, oropharynx normal Neck: trachea midline, no thyromegaly Respiratory: normal respiratory effort; no respiratory distress Auscultation: + diminished lung sounds (Over left lung) Cardiovascular: Rate/Rhythm: regular rate and regular rhythm Heart Sounds: no murmur Gastrointestinal (Abdomen): Inspection/Auscultation: abdomen normal to inspection and normal bowel sounds; abdomen not distended Percussion/Palpation: abdomen soft; abdomen nontender Musculoskeletal: Has kyphoscoliosis Neurologic: moves all extremities; no focal motor deficits Speech / Cognition: normal speech Psychiatric: A+Ox3, euthymic affect Lymphatic: no cervical or axillary lymphadenopathy Results & Data Results & Data ([facility]) Vital Signs (Past 12 Hours) Vital Signs Temp Pulse Pulse Resp BP BP Pulse Ox 06/30/20 11:21 36.8 C 68 18 151/76 H 96 06/30/20 07:38 53 L 06/30/20 07:00 36.7 C 57 L 18 149/86 H 97 06/30/20 04:10 36.6 C 57 L 19 123/77 94 06/30/20 02:39 58 L Medications Administered Current Inpatient Medications Acetaminophen (Acetaminophen 325 Mg Tab) 650 mg PO Q4H PRN PRN Reason: Pain or Fever Stop: 07/29/20 01:22 Last Admin: 06/30/20 02:49 Dose: 650 mg Documented by: Amlodipine Besylate (Amlodipine Besylate 5 Mg Tab) 2.5 mg PO HS [facility] Stop: 07/29/20 20:59 Last Admin: 06/29/20 20:57 Dose: 2.5 mg Documented by: Buspirone HCl (Buspirone 5 Mg Tab) 10 mg PO BID [facility] Stop: 07/29/20 08:59 Last Admin: 06/30/20 08:04 Dose: 10 mg Documented by: Docusate Sodium (Docusate Sodium 100 Mg Cap) 100 mg PO BID PRN PRN Reason: Constipation Stop: 07/29/20 01:27 Enoxaparin Sodium (Enoxaparin Inj 30 Mg/0.3 Ml Syr) 30 mg SQ QAM [facility]MANN Stop: 07/29/20 08:59 Last Admin: 06/30/20 08:04 Dose: 30 mg Documented by: Promethazine HCl 6.25 mg/ (Sodium Chloride) 50.25 mls @ 201 mls/hr IV Q6H PRN PRN Reason: Nausea And Vomiting Stop: 07/29/20 00:41 Metoprolol Succinate (Metoprolol Succ 25mg Ext Rel Tab) 25 mg PO DAILY [facility] Stop: 07/29/20 08:59 Last Admin: 06/30/20 08:04 Dose: 25 mg Documented by: Quetiapine Fumarate (Quetiapine Fumarate 25 Mg Tablet) 25 mg PO HS [facility] Stop: 07/29/20 20:59 Last Admin: 06/29/20 20:57 Dose: 25 mg Documented by: Simvastatin (Simvastatin 10 Mg Tab) 10 mg PO HS [facility] Stop: 07/29/20 20:59 Last Admin: 06/29/20 20:57 Dose: 10 mg Documented by:
--- NOTE | 2020-06-30 17:12 | Progress Notes ---
DATE: 06/30/2020 SUBJECTIVE: I am seeing Mrs. Reyna in followup of auditory hallucinations. The patient indicates that she did well overnight with what I assume to be having received an increased dose of Seroquel. OBJECTIVE: On today's exam, she is awake and alert, asked me many details about her followup post discharge. IMPRESSION: This patient likely has hallucinations on the basis of some cognitive impairment, which appears to be mild. MRI of the brain is noncontributory. If not already done, B12, folate and RPR should be performed. If a beta bhavani can be avoided, that might be reasonable as beta blockade can cause confusion in the elderly. Agree with the increased dose of Seroquel. The family would like to pursue further evaluation of cognitive dysfunction. They can certainly see me in followup post discharge. I have given the patient my business card. We will sign off.
--- NOTE | 2020-07-06 08:58 | Discharge Summary ---
Date of Service July 06, 2020 Admission HPI Per Admitting Provider History obtained from patient, family, and records. Medical history significant for hypertension, hyperlipidemia, PVD as per records arthritis, anxiety. Last confinement August 2018 for cerebral concussion. 6 months ago patient noted auditory hallucinations mostly advent hymns. Sometimes patient would hear voices telling her that "they would not hurt you." Patient denies suicidality. Family attributed hallucinations to some isolation stemming from the pandemic. BuSpar initiated outpatient for possible anxiety component. Patient seen at the ER 5 months ago for hallucinations. No tumors noted on contrast MRI of the brain. Patient evaluated by [facility] psychiatry outpatient 4 months ago. As per patient family, psychiatry recommended audiology evaluation of patient's hearing aids. Low-dose Seroquel recommended if no concerns from Audiology. Three weeks ago, low-dose Seroquel 12.5 mg daily started as per psychiatry recommendations after negative outpatient Audiology evaluation. On outpatient PCP visit last week, Keflex course initiated for hematuria symptoms attributed to UTI. Outpatient neurology consultation contemplated to rule out Parkinson's disease or vascular dementia as alternative explanations for persistent auditory hallucinations as per documentation. Patient brought to the ER tonight because of persistent auditory hallucinations despite Seroquel prescription and family concerns about patient ability to be by herself at home. Patient denies headache, chest pain, S OB, cough, abdominal pain symptoms. Medical History as above Surgical History : Carpal tunnel surgery, cataract surgery Family History : Breast cancer, dementia, heart disease Personal/Social history : Non-smoker, no EtOH intake, retired from office work, lives by herself Admission Exam Per Admitting Provider Physical Exam: GENERAL: Comfortable, pleasant, obese, oriented, no respiratory distress SKIN: Normal color, warm HEENT: Bespectacled, pink palpebral conjunctivae, no ptosis, dry buccal mucosa NECK : Supple, no tenderness CHEST : CTA, no tenderness HEART : Bradycardic, systolic murmur ABDOMEN: Some distention, nontender EXTREMITIES : No LE swelling/tenderness, no other conspicuous deformities noted NEUROLOGIC : Coherent, no facial asymmetry, mild hearing impairment, no other gross focality Principal Diagnosis Auditory hallucination, hypertensive urgency Discharge Exam Constitutional well developed, well nourished and + acute distress; not ill appearing Eyes PERRL, conjunctivae normal, anicteric sclerae ENMT external ear and nose normal, oropharynx normal Neck trachea midline, no thyromegaly Respiratory normal respiratory effort; no respiratory distress Auscultation: + diminished lung sounds (Over left lung) Cardiovascular Rate/Rhythm: regular rate and regular rhythm Heart Sounds: no murmur Gastrointestinal (Abdomen) Inspection/Auscultation: abdomen normal to inspection and normal bowel sounds; abdomen not distended Percussion/Palpation: abdomen soft; abdomen nontender Neurologic moves all extremities; no focal motor deficits Speech / Cognition: normal speech Psychiatric A+Ox3, euthymic affect Lymphatic no cervical or axillary lymphadenopathy Discharge Data Allergies Allergy/AdvReac Type Severity Reaction Status Date / Time NSAIDS (Non-Steroidal AdvReac Mild bleeding Verified 06/28/20 23:21 Anti-Inflamma alendronate sodium AdvReac gerd Verified 06/28/20 23:21 lisinopril AdvReac renal cx Verified 06/28/20 23:21 Consultations 06/28/20 21:27 ED Decision to Admit Stat 06/29/20 00:42 Consult Case Management - Discharge Planning Routine Consult Neurology Routine Consult Psychiatry Routine Hospital Course (1) Auditory hallucinations: Has been complaining of auditory hallucinations for a while and the symptoms seems to be worsening Does not any other form of hallucinations or any confusion MRI scan of the head in January was unremarkable 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 Appreciate psychiatric input and recommendation Awaiting neurology evaluation-appreciate input and recommendation Still has minimal auditory hallucinations without any other symptoms (2) Asymptomatic hypertensive urgency: Possibly from anxiety Blood pressure remains stable Continue current medications Bradycardia, secondary to home beta-bhavani PVD as per records Patient remains upper side of normal Complicated UTI ongoing antibiotic Rx Has been getting Keflex Will finish the course of antibiotic Hyperlipidemia Continue statin Safety concerns at home Will need PT and OT evaluation and possible placement PT OT recommended home Patient will be going home with more home help from [employer] at home DVT prophylaxis. Lovenox subcu DNR Patient's nephew requesting updates from providers. Mr. Tarik Reyna, contact #[phone]. (3) HTN (hypertension): Total Time Total Time Spent Total Time Spent (In Minutes): 35 minutes Total Time Includes: Examination of the Patient, Discharge Planning, Medication Reconciliation and Communication With Other Providers Discharge Plan Discharge Items Patient Disposition: Home - Home Health Services Reason For Visit: HTN URGENCY Discharge Diagnosis: Auditory hallucination, hypertensive urgency Condition on Discharge: Good Activity: Resume your previous activity Non-emergency contact: Primary Care Provider Call non-emergency contact if: you have any medication questions and your symptoms worsen Follow-up/Referrals: [facility] [Provider Group] - 07/11/20 2:30 pm (Psych appt with Constance Guerrero via phone. They will call you at your home number. Please be advised, [facility] please [facility] call) Shirley Lovett, [Primary Care Provider] - Diet: Heart Healthy Addtl Attending Provider Instructions: Please take precautions to avoid falls Pending Studies at Discharge: No Stand-Alone Forms: My [facility], Smoking Cessation Medications and DC Order Prescriptions: New amlodipine [Norvasc] 5 mg Tablet 2.5 mg PO HS 30 Days Qty: 15 RF: 0 B12 Active 1,000 mcg tablet,chewable 1,000 mcg PO DAILY Qty: 30 RF: 0 Continued acetaminophen 325 mg Tablet 650 mg PO Q6H PRN (Reason: Pain) RF: 0 calcium carbonate [Calcium 600] 600 mg calcium (1,500 mg) Tablet 600 mg PO DAILY RF: 0 omega [id number] oil [Fish Oil] 1,000 mg (120 mg-180 mg) Capsule 1 cap PO QAM RF: 0 metoprolol succinate 50 mg tablet extended release 24 hr 50 mg PO DAILY RF: 0 simvastatin 10 mg tablet 10 mg PO HS RF: 0 cholecalciferol (vitamin D3) 1,000 unit Capsule 2,000 unit PO QAM RF: 0 cephalexin [Keflex] 500 mg capsule 500 mg PO BID RF: 0 buspirone 10 mg tablet 10 mg PO BID RF: 0 docusate sodium 100 mg Tablet 100 mg PO BID PRN (Reason: Constipation) RF: 0 Coricidin HBP Cold and Flu 2-325 mg Tablet 1 tab PO Q6H PRN (Reason: Cold Symptoms) RF: 0 Changed quetiapine [Seroquel] 25 mg tablet 25 mg PO HS Qty: 0 RF: 0 Discharge Orders: Discharge Order (Routine); Ordered 06/30/20 Ordered By: Thaddeus Guerrero Admission Data Admit Date/Time: 06/28/20 22:55 Attending Provider: Thaddeus Guerrero Admit Provider: Oconer,Rodney N. Primary Care Provider: Shirley Lovett Other Providers: Rodney Alexander ; Kylie Luo ; Mekhi Brown ; Kylie Dunbar ; Petar Mercado ; Ag Larose ; Nena Mistry ; David Del Angel ; Carlos Sargent ; Vance Flores ; Karolyn Norton ; Denny Bruce ; Kary Elizabeth ; Paerl Hopkins ; Julia Negro ; Zan Ortega I. ; Roxanna Ireland ; Sonam Anderson ; Blanca Day ; Bo Newby. Other Interventions: Discharge Summary Assessment (RN) Last Done: 06/30/20 17:23
== END 2020-06-30 18:05 | disposition home health service (06) ==
LOC: 2N 18:41 → ED 18:41 → 2N 06-29 00:47